=== PATIENT | female | born 1950 | race Asian ===

== ENCOUNTER 2019-11-13 08:02 | Outpatient (CLI) | payer MEDICARE, OTHER, SELFPAY ==
--- NOTE | 2019-11-13 08:15 | XR_ITS ---
WS: [id number] CHEST 2 VIEWS HISTORY: HX OF LATENT TUBERCULOSIS COMPARISON: 09/30/2017 Lungs: Lungs are slightly hyperexpanded. No pulmonary nodules or mass or calcification. Cardiac size: Mildly enlarged cardiac silhouette. Mediastinum/Aorta: Mild atherosclerosis aorta. Bones: Mild straightening of the normal thoracic kyphosis. XR/XR chest 2V* [id number] IMPRESSION: Mild cardiomegaly. No pulmonary nodule or mass.
== END 2019-11-13 08:03 | disposition home or self-care (01) ==
PROVIDERS: Family Provider Family Medicine; PCP Family Medicine; Visit Provider Family Medicine
DX: Z86.11 Personal history of tuberculosis (principal); I51.7 Cardiomegaly
CPT/HCPCS: 71046

== ENCOUNTER 2020-07-10 07:25 | Emergency (ER) | payer OTHER, MEDICARE, SELFPAY ==
[2020-07-10 07:30] VITALS: BP 201/94; PULSE 76; RESP 20; TEMP 36.3; O2SAT 97; BMI 33.0
--- NOTE | 2020-07-10 07:41 | W.ED.HA ---
HPI - Headache General: Chief Complaint: Headache Stated Complaint: HEADACHE Time Seen by Provider: 07/10/20 07:41 Source: patient Mode of arrival: ambulatory Limitations: no limitations History of Present Illness: HPI Narrative: 70-year-old female comes in today with headache for 2 weeks. Patient also reports coughing and nasal drainage with tinge of dark blood in it. Patient has a history of asthma and hypertension. Patient appears well. Patient appears in mild to moderate pain. MD elicited complaint: headache Review of Systems General: Reports: 10 or more systems reviewed and unremarkable except in HPI and below Resp: Reports: wheezing Neuro: Reports: headache(s) PFSH ED PFSH: Family History Father , from [place] age 45 Myocardial infarction Mother Cancer Other Diabetes Hypertension Social History Smoking and tobacco status: never smoked Physical Exam Const: COMMON NORMALS: no acute distress and patient oriented x3 GENERAL APPEARANCE: cooperative HENMT: COMMON NORMALS: normocephalic and TM's normal bilaterally HEAD & SCALP: normal to inspection and normocephalic NOSE: Abnormal mucous membranes and turbinates present erythematous and Nasal discharge present TYMPANIC MEMBRANE: TM's normal bilaterally MOUTH: Normal oral and palatal mucosa present THROAT: posterior oropharynx normal Eye: GENERAL EYE: appearance normal, both eyes and all related structures Neck/C-Spine: COMMON NORMALS: full ROM Lymph: LYMPHATIC: no lymphadenopathy noted Chest: COMMONS NORMALS: normal inspection of the chest Resp: COMMON NORMALS: normal respiratory effort EFFORT & INSPECTION: Yes able to speak in complete sentences AUSCULTATION: wheezes Cardio: COMMON NORMALS: regular rate and regular rhythm RATE: regular rate RHYTHM: regular rhythm GI: COMMON NORMALS: non-tender : COMMON NORMALS: Yes no CVA tenderness BLADDER/KIDNEY EXAM: Yes no CVA tenderness Back/Pelvis: COMMON NORMALS: no CVA tenderness and thoracic and lumbar spine normal to inspection Extremity: COMMON NORMALS: normal to inspection Neuro: COMMON NORMALS: patient oriented x3, moves all extremities, no focal motor deficits and no sensory deficits noted Psych: COMMON NORMALS: mental status grossly normal and cooperative Skin: COMMON NORMALS: no rashes or lesions noted GENERAL SKIN EXAM: no rashes or lesions noted Course Vital Signs: Vital signs: Vital Signs Temperature 97.3 F L 07/10/20 07:30 Pulse Rate 79 07/10/20 08:29 Respiratory Rate 17 07/10/20 08:28 Blood Pressure 201/94 07/10/20 07:30 Pulse Oximetry 97 07/10/20 08:28 MDM - Headache Lab Data: Labs: Lab Results 07/10/20 07/10/20 Range/Units 08:14 08:14 WBC 10.6 H (4.0-10.0) 10^3/ uL RBC 4.75 (4.1-5.3) 10^6/u L Hgb 14.1 (11.5-15.3) g/dL Hct 43.2 (37.0-47.0) % MCV 90.9 (81-99) fL MCH 29.7 (28.0-34.0) pg MCHC 32.6 (30.0-36.0) g/dL RDW 12.1 (12.1-15.1) % Plt Count 171 (130-400) 10^3/c mm MPV 10.8 H (7.4-10.4) fL Neut % (Auto) 76.7 % Lymph % (Auto) 13.2 % [place] % (Auto) 6.7 % Eos % (Auto) 2.4 % Baso % (Auto) 0.8 % Neut # (Auto) 8.16 H (1.8-7.7) 10^3/u L Lymph # (Auto) 1.4 (0.8-4.8) 10^3/u L [place] # (Auto) 0.7 (0.2-0.9) 10^3/u L Eos # (Auto) 0.3 (0.0-0.8) 10^3/u L Baso # (Auto) 0.1 (0.0-0.1) 10^3/u L Nucleated RBC % (a uto) 0 % Nucleated RBCs # 0.0 /100WBC Sodium 134 L (136-145) mmol/L Potassium 4.1 (3.5-5.1) mmol/L Chloride 97 L (98-107) mmol/L Carbon Dioxide 25 (22-29) mmol/L Anion Gap 16.1 (5-19) BUN 14 (8-23) mg/dL Creatinine 0.6 (0.5-0.9) mg/dL GFR Calculation 99.1 (90-130) mL/min Glucose 284 H (65-115) mg/dL Calculated Osmolal ity 289 (285-295) mOsm/k g Calcium 9.6 (8.5-10.5) mg/dL C-Reactive Protein 5.1 H (0.0-4.9) mg/L Discharge Plan Discharge Clinical Impression: Sinusitis Qualifiers: Sinusitis location: ethmoidal Chronicity: acute Recurrence: not specified as recurrent Qualified Code(s): J01.20 - Acute ethmoidal sinusitis, unspecified Asthma exacerbation Qualifiers: Asthma severity: moderate Asthma persistence: persistent Qualified Code(s): J45.41 - Moderate persistent asthma with (acute) exacerbation Condition: Stable Prescriptions: New prednisone 20 mg tablet 20 mg PO BID 5 Days Qty: 10 RF: 0 amoxicillin-pot clavulanate [Augmentin] 875-125 mg tablet 1 tab PO BID Qty: 20 RF: 0 fluticasone propionate [Flonase Allergy Relief] 50 mcg/actuation spray,suspension 1 spray intranasal BID Qty: 9.9 RF: 0 No Action carvedilol [Coreg] 25 mg tablet 25 mg PO BID RF: 0 amlodipine [Norvasc] 10 mg tablet 10 mg PO DAILY RF: 0 glimepiride [Amaryl] 2 mg tablet 2 mg PO DAILY RF: 0 fluticasone propion-salmeterol [Advair Diskus] 250-50 mcg/dose blister with device 1 inh INHALATION BID RF: 0 Discharge Orders: Discharge ED (Routine); Ordered 07/10/20 Ordered By: Oni Yañez Referrals: Thony Chung MD [Primary Care Provider] - Discharge Diet: Usual diet Discharge Activity: Increase activity as tolerated Patient Instructions: Sinusitis (ED) Activity Restrictions/Additional Instructions: Drink plenty of fluids. Take antibiotics as directed 1 tablet twice a day for 10 days. Use fluticasone nasal spray 1 spray each nostril twice a day to help with swelling and discomfort. Use prednisone 20 mg twice a day for the next 5 days for asthma flare. Continue with routine medications as prescribed. Follow-up with primary care for further treatment and evaluation. If you check your blood sugar regularly you will notice that it will elevate for the next few days due to the steroids that you are taking. Return to the emergency department for new concerns or worsening symptoms. 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
--- NOTE | 2020-07-10 07:48 | CTR_ITS ---
PROCEDURE INFORMATION: Exam: CT Head Without Contrast Exam date and time: 07/10/2020 7:52 AM Age: 70 years old Clinical indication: Pain; Headache; Additional info: New onset headache TECHNIQUE: Imaging protocol: Computed tomography of the head without contrast. Radiation optimization: All CT scans at this facility use at least one of these dose optimization techniques: automated exposure control; mA and/or kV adjustment per patient size (includes targeted exams where dose is matched to clinical indication); or iterative reconstruction. COMPARISON: CT head wo con* [id number] 09/30/2017 9:42 AM RADIATION DOSE METRICS: Total DLP (mGy-cm): 749.82 FINDINGS: Brain: No intracranial hemorrhage, edema or other acute abnormalities are seen in the brain. There is no mass effect or midline shift. Cerebral ventricles: No ventriculomegaly. Bones/joints: Unremarkable. No acute fracture. Paranasal sinuses: There is prominent mucosal thickening in the right ethmoid and sphenoid sinuses. There is complete opacification of the posterior right ethmoid air cells and of the right side of the sphenoid sinus. This has developed since a previous scan from 09/30/2017 . Mastoid air cells: Visualized mastoid air cells are well aerated. Soft tissues: Unremarkable. CT/CT head wo con* [id number] IMPRESSION: 1. No acute abnormalities are seen in the brain. 2. Paranasal sinusitis with opacification of the right ethmoid and sphenoid sinuses. Radiation Dose CTDIVOL = (mGy): DLP = 749.82 (mGy-cm)
[2020-07-10] MEDS: dexamethasone 4 mg/mL INJ 8 MG IVP (08:21)
[2020-07-10] MEDS: metoclopramide 5 mg/mL SDV 2 mL 10 MG IVP (08:21)
[2020-07-10] MEDS: ipratropium-albuterol 3 mL Neb INHALATION (08:26)
[2020-07-10 08:28] VITALS: PULSE 75; RESP 17; O2SAT 97
[2020-07-10 08:29] VITALS: PULSE 79
[2020-07-10 08:32] LABS: Basophils # 0.1 10^3/uL (0.0-0.1); Basophils % 0.8 %; Eosinophils # 0.3 10^3/uL (0.0-0.8); Eosinophils % 2.4 %; Hematocrit 43.2 % (37.0-47.0); Hemoglobin 14.1 g/dL (11.5-15.3); Lymphocytes # 1.4 10^3/uL (0.8-4.8); Lymphocytes % 13.2 %; Mean Corpuscular HGB Conc 32.6 g/dL (30.0-36.0); Mean Corpuscular Hemoglobin 29.7 pg (28.0-34.0); Mean Corpuscular Volume 90.9 fL (81-99); Mean Platelet Volume 10.8 fL (7.4-10.4); Monocytes # 0.7 10^3/uL (0.2-0.9); Monocytes % 6.7 %; Neutrophils # 8.16 10^3/uL (1.8-7.7); Neutrophils % 76.7 %; Nucleated Red Blood Cells % 0 %; Platelet Count 171 10^3/cmm (130-400); Red Blood Count 4.75 10^6/uL (4.1-5.3); Red Cell Distribution Width 12.1 % (12.1-15.1); White Blood Count 10.6 10^3/uL (4.0-10.0)
[2020-07-10 08:44] LABS: Anion Gap 16.1 (5-19); Blood Urea Nitrogen 14 mg/dL (8-23); C Reactive Protein 5.1 mg/L (0.0-4.9); Calcium 9.6 mg/dL (8.5-10.5); Carbon Dioxide 25 mmol/L (22-29); Chloride 97 mmol/L (98-107); Glomerular Filtration Rate 99.1 mL/min (90-130); Glucose 284 mg/dL (65-115); Osmolality Calculated 289 mOsm/kg (285-295); Potassium 4.1 mmol/L (3.5-5.1); Sodium 134 mmol/L (136-145)
[2020-07-10 09:08] VITALS: BP 132/85; PULSE 70; RESP 16; O2SAT 97
== END 2020-07-10 09:10 | disposition home or self-care (01) ==
PROVIDERS: Emergency Provider Nurse Practitioner Family; PCP Family Medicine
DX: J01.20 Acute ethmoidal sinusitis, unspecified (principal); J45.41 Moderate persistent asthma with (acute) exacerbation
CPT/HCPCS: 12345; 70450; 80048; 85025; 86140; 94640; 96374; 96375; 99283; J1100; J2765

== ENCOUNTER 2020-07-13 05:39 | Inpatient (IN) | payer OTHER, MEDICARE, SELFPAY ==
[2020-07-13] VITALS (17 sets, daily range): BP systolic 133–190; BP diastolic 70–108; PULSE 62–87; RESP 18–24; TEMP 36.8–38.4; O2SAT 95–99; BMI 32.1
--- NOTE | 2020-07-13 05:51 | CTR_ITS ---
PROCEDURE INFORMATION: Exam: CT Head Without Contrast Exam date and time: 07/13/2020 6:00 AM Age: 70 years old Clinical indication: Pain; Patient HX: Persistent headache x several days with fever. ; Additional info: NASH TECHNIQUE: Imaging protocol: Computed tomography of the head without contrast. Radiation optimization: All CT scans at this facility use at least one of these dose optimization techniques: automated exposure control; mA and/or kV adjustment per patient size (includes targeted exams where dose is matched to clinical indication); or iterative reconstruction. COMPARISON: CT head wo con* [id number] 07/10/2020 7:55 AM RADIATION DOSE METRICS: Total DLP (mGy-cm): 186 FINDINGS: Brain: There is no acute intracranial hemorrhage or mass effect. Mild diffuse volume loss is within the range of normal for patient age. There are small vessel ischemic changes within the periventricular and subcortical white matter, but the normal aburto/white matter delineation is maintained. Cerebral ventricles: No ventriculomegaly. Bones/joints: Unremarkable. No acute fracture. Paranasal sinuses: There is opacification of right ethmoid air cells and right sphenoid sinus. There is mild ethmoid and left maxillary sinus mucosal thickening. Mastoid air cells: Visualized mastoid air cells are well aerated. Soft tissues: Unremarkable. CT/CT head wo con* [id number] IMPRESSION: No acute intracranial hemorrhage or edema. Sinus mucosal disease. Radiation Dose CTDIVOL = (mGy): DLP = 186 (mGy-cm)
--- NOTE | 2020-07-13 06:22 | ED_ITS ---
HPI - Headache General: Chief Complaint: Headache Stated Complaint: severe headache Time Seen by Provider: 07/13/20 06:08 History of Present Illness: HPI Narrative: 70-year-old female in with complaints of persistent headache. The patient describes a throbbing frontal type headache. She has had this for several days now she was actually seen here 4 days earlier and had workup that included a CT scan that was reportedly negative she was treated for sinusitis and released. Unfortunately the headache persists. She rates it as moderate to severe in intensity with light and movement exacerbating her symptoms. The patient has had some nausea and vomiting. She has been taking her medications include doxycycline, prednisone and Flonase as directed. She reports her blood pressures been a little bit on the higher side. She notes no other palliative or provocative factors. She has not been around anybody sick or denied any fever but when she checked in her temperature did have slight elevation. MD elicited complaint: headache Onset (ago): day(s) Onset description: gradually Location: frontal and temporal Quality & Timing: throbbing Associated symptoms: Reports nausea and vomiting; Deny chest pain or rash Review of Systems Eyes: Reports: photophobia; Denies: eye discharge or yellow eyes ENMT: Denies: throat pain Card: Denies: chest pain Resp: Denies: dyspnea GI: Reports: nausea and vomiting; Denies: abdominal pain, hematemesis, coffee ground emesis or dysphagia : Denies: flank pain Musc: Denies: neck pain or muscle weakness Skin/Breast: Denies: rash Neuro: Reports: headache(s); Denies: numbness in extremities, weakness in extremities, dizziness, behavioral changes, Slurred speech present, difficulty communicating thoughts, seizure-like activity or involuntary movements Psych: Reports: anxiety PFSH ED PFSH: Medical History (Updated 07/13/20 @ 12:09 by Ilan Catalan MD) Asthma Diabetes mellitus Hypertension DOTTIE (obstructive sleep apnea) Osteoarthritis Surgical History (Updated 07/13/20 @ 12:03 by Ilan Catalan MD) S/P cataract extraction S/P hysterectomy S/P knee surgery S/P oophorectomy Family History Father , from [place] age 45 Myocardial infarction Mother Cancer Other Diabetes Hypertension Social History (Updated 07/13/20 @ 12:04 by Ilan Catalan MD) Smoking and tobacco status: never smoked Alcohol intake: never Physical Exam Const: COMMON NORMALS: no acute distress, patient oriented x3, healthy appearing and alert EXAM LIMITATIONS: no altered mental status GENERAL APPEARANCE: cooperative; not lethargic, not ill appearing and not frail appearing ORIENTATION/CONSCIOUSNESS: not lethargic HENMT: COMMON NORMALS: normocephalic, Normal nasal mucous membranes and turbinates present and moist oral mucous membranes HEAD & SCALP: normocephalic; no contusion FACE & SINUS: normal facial exam NOSE: Normal nasal mucous membranes and turbinates present Neck/C-Spine: COMMON NORMALS: full ROM, no lymphadenopathy, no meningeal signs and no JVD GENERAL: Yes normal visual inspection Chest: COMMONS NORMALS: normal inspection of the chest CHEST: Yes Symmetrical chest wall rise Resp: COMMON NORMALS: normal respiratory effort, No use of accessory muscles and clear to auscultation bilaterally AUSCULTATION: clear to auscultation bilaterally Cardio: COMMON NORMALS: no JVD, regular rate and regular rhythm RATE: regular rate RHYTHM: regular rhythm Back/Pelvis: THORACIC SPINE/UPPER BACK: Yes normal to inspection LUMBAR SPINE/LOWER BACK: Yes normal to inspection Extremity: GENERAL: Yes normal exam except as noted Neuro: COMMON NORMALS: patient oriented x3 SENSORIUM/ORIENTATION: Yes alert and No lethargic MENINGEAL SIGNS: Yes no meningeal signs CRANIAL NERVES: Yes CN normal except as noted COORDINATION/BALANCE: [id number] test normal SPEECH: speech normal GAIT: Yes Unable to assess gait SENSORY EXAM: Yes extremities COORDINATION: [id number] test normal Skin: COMMON NORMALS: no rashes or lesions noted GENERAL SKIN EXAM: no rashes or lesions noted Procedures Lumbar Puncture Time Out Performed: Yes Patient Position: upright Skin Prep: Povidone-Iodine 1% Local Anesthetic: lidocaine 1% Spinal Needle Gauge: 20G Interspace Used: L4-L5 Fluid Initially Obtained: clear Complications: none Course Reevaluation(s): Time: 07:53 Reevaluation #2: Patient reports NASH is somewhat improved. Will give magnesium and toradol. Work up so far unrevealing with negative CT head. ? steroid induced leukocytosis. COVID test is pending. Time: 10:13 Reevaluation #3: Feeling better. CSF / Sed rate results pending Vital Signs: Vital signs: Vital Signs Temperature 100.4 F H 07/13/20 07:10 Pulse Rate 73 07/13/20 12:00 Respiratory Rate 23 H 07/13/20 12:00 Blood Pressure 180/105 07/13/20 12:00 Pulse Oximetry 98 07/13/20 12:00 MDM - Headache MDM Narrative: Medical decision making narrative: 70-year-old female in with persistent headache. The patient still has a broad differential diagnosis and medical and repeat a CT scan of her head and routine labs will give a standard headache cocktail do serial reexaminations. At this point she doesn't appear to be toxic or significantly ill. I don't think at this point a lumbar puncture would be indicated we may consider testing her for garcia virus infection and influenza. Patient work up shows some concerning lab findings. Empiric antibiotics and admission with coverage for TA will be implemented. Discussed case with Dr. Catalan. Differential Diagnosis: Differential diagnosis headache: Likely migraine, tension headache, subarachnoid hemorrhage, headache and sinusitis Lab Data: Labs: Lab Results 07/13/20 07/13/20 07/13/20 Range/Units 06:34 06:34 06:34 WBC 17.8 H (4.0-10.0) 10^3/ uL RBC 5.00 (4.1-5.3) 10^6/u L Hgb 14.7 (11.5-15.3) g/dL Hct 44.5 (37.0-47.0) % MCV 89.0 (81-99) fL MCH 29.4 (28.0-34.0) pg MCHC 33.0 (30.0-36.0) g/dL RDW 12.0 L (12.1-15.1) % Plt Count 165 (130-400) 10^3/c mm MPV 10.6 H (7.4-10.4) fL Neut % (Auto) 87.7 % Lymph % (Auto) 4.3 % [place] % (Auto) 6.7 % Eos % (Auto) 0.0 % Baso % (Auto) 0.2 % Neut # (Auto) 15.61 H (1.8-7.7) 10^3/u L Lymph # (Auto) 0.8 (0.8-4.8) 10^3/u L [place] # (Auto) 1.2 H (0.2-0.9) 10^3/u L Eos # (Auto) 0.0 (0.0-0.8) 10^3/u L Baso # (Auto) 0.0 (0.0-0.1) 10^3/u L Nucleated RBC % (a uto) 0 % Nucleated RBCs # 0.0 /100WBC ESR > 120 H (0-15) mm/hr Sodium 128 L (136-145) mmol/L Potassium 4.1 (3.5-5.1) mmol/L Chloride 92 L (98-107) mmol/L Carbon Dioxide 26 (22-29) mmol/L Anion Gap 14.1 (5-19) BUN 21 (8-23) mg/dL Creatinine 0.5 (0.5-0.9) mg/dL GFR Calculation 122.3 (90-130) mL/min Glucose 321 H (65-115) mg/dL Calculated Osmolal ity 281 L (285-295) mOsm/k g Calcium 8.9 (8.5-10.5) mg/dL Total Bilirubin 1.1 (0.15-1.2) mg/dL AST 12 (0-32) U/L ALT 16 (0-33) U/L Alkaline Phosphata se 104 (35-105) IU/L C-Reactive Protein 84.0 H (0.0-4.9) mg/L Total Protein 7.7 (6.6-8.7) g/dL Albumin 4.0 (3.5-5.2) g/dL Globulin 3.7 (1.3-4.6) g/dL Urine Color (Yellow) Urine Appearance (CLEAR) Urine pH (5-7) Ur Specific Gravit y (1.005-1.030) Urine Protein (Negative) Urine Glucose (UA) (Normal) Urine Ketones (Negative) Urine Blood (Negative) Urine Nitrate (Negative) Urine Bilirubin (Negative) Urine Urobilinogen (Negative) mg/dL Ur Leukocyte Radha ase (Negative) Urine RBC (0-2) /hpf Urine WBC (0-5) /hpf Ur Squamous Epith Cells (0-5) /hpf Amorphous Sediment Urine Bacteria (NONE) /hpf Urine Trichomonas /hpf CSF Appearance (CLEAR) CSF Color (COLORLESS) CSF WBC (0-5) /uL CSF RBC (0-0) 10^3/uL CSF Mononuclear # Auto (50-90) 10^3/uL CSF Mononuclear WB Cs % (50-90) % CSF Polynuclear WB Cs # (0-10) 10^3/uL CSF Polynuclear WB Cs % (0-10) % CSF Glucose (40-70) mg/dL CSF Total Protein (15-45) mg/dL SARS-CoV-2 Ag (Rap id) (Negative) 07/13/20 07/13/20 07/13/20 Range/Units 07:25 08:30 10:00 WBC (4.0-10.0) 10^3/ uL RBC (4.1-5.3) 10^6/u L Hgb (11.5-15.3) g/dL Hct (37.0-47.0) % MCV (81-99) fL MCH (28.0-34.0) pg MCHC (30.0-36.0) g/dL RDW (12.1-15.1) % Plt Count (130-400) 10^3/c mm MPV (7.4-10.4) fL Neut % (Auto) % Lymph % (Auto) % [place] % (Auto) % Eos % (Auto) % Baso % (Auto) % Neut # (Auto) (1.8-7.7) 10^3/u L Lymph # (Auto) (0.8-4.8) 10^3/u L [place] # (Auto) (0.2-0.9) 10^3/u L Eos # (Auto) (0.0-0.8) 10^3/u L Baso # (Auto) (0.0-0.1) 10^3/u L Nucleated RBC % (a uto) % Nucleated RBCs # /100WBC ESR (0-15) mm/hr Sodium (136-145) mmol/L Potassium (3.5-5.1) mmol/L Chloride (98-107) mmol/L Carbon Dioxide (22-29) mmol/L Anion Gap (5-19) BUN (8-23) mg/dL Creatinine (0.5-0.9) mg/dL GFR Calculation (90-130) mL/min Glucose (65-115) mg/dL Calculated Osmolal ity (285-295) mOsm/k g Calcium (8.5-10.5) mg/dL Total Bilirubin (0.15-1.2) mg/dL AST (0-32) U/L ALT (0-33) U/L Alkaline Phosphata se (35-105) IU/L C-Reactive Protein (0.0-4.9) mg/L Total Protein (6.6-8.7) g/dL Albumin (3.5-5.2) g/dL Globulin (1.3-4.6) g/dL Urine Color Yellow (Yellow) Urine Appearance Clear (CLEAR) Urine pH 6 (5-7) Ur Specific Gravit y 1.010 (1.005-1.030) Urine Protein 2+ H (Negative) Urine Glucose (UA) 4+ H (Normal) Urine Ketones 1+ H (Negative) Urine Blood 2+ H (Negative) Urine Nitrate Negative (Negative) Urine Bilirubin Neg (Negative) Urine Urobilinogen 1 H (Negative) mg/dL Ur Leukocyte Radha ase Negative (Negative) Urine RBC 0-4 H (0-2) /hpf Urine WBC None (0-5) /hpf Ur Squamous Epith Cells Rare (0-5) /hpf Amorphous Sediment Not Reportable Urine Bacteria Trace (NONE) /hpf Urine Trichomonas Trace H /hpf CSF Appearance Clear (CLEAR) CSF Color Colorless (COLORLESS) CSF WBC 3 (0-5) /uL CSF RBC 0 (0-0) 10^3/uL CSF Mononuclear # Auto 0.003 L (50-90) 10^3/uL CSF Mononuclear WB Cs % 100 H (50-90) % CSF Polynuclear WB Cs # 0.000 (0-10) 10^3/uL CSF Polynuclear WB Cs % 0 (0-10) % CSF Glucose 133 H (40-70) mg/dL CSF Total Protein 43 (15-45) mg/dL SARS-CoV-2 Ag (Rap id) Negative (Negative) Discharge Plan Discharge Patient Disposition: Admitted As Inpatient Clinical Impression: Headache Qualifiers: Headache type: unspecified Condition: Stable Coding Level of 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
[2020-07-13 06:47] LABS: Basophils % 0.2 %; Hematocrit 44.5 % (37.0-47.0); Hemoglobin 14.7 g/dL (11.5-15.3); Lymphocytes # 0.8 10^3/uL (0.8-4.8); Lymphocytes % 4.3 %; Mean Corpuscular Hemoglobin 29.4 pg (28.0-34.0); Mean Platelet Volume 10.6 fL (7.4-10.4); Monocytes # 1.2 10^3/uL (0.2-0.9); Monocytes % 6.7 %; Neutrophils # 15.61 10^3/uL (1.8-7.7); Neutrophils % 87.7 %; Nucleated Red Blood Cells % 0 %; Platelet Count 165 10^3/cmm (130-400); White Blood Count 17.8 10^3/uL (4.0-10.0)
[2020-07-13] MEDS: lactated ringers 1,000 ML 999 ML IV (06:48)
[2020-07-13] MEDS: metoclopramide 5 mg/mL SDV 2 mL 10 MG IVP (06:48)
[2020-07-13] MEDS: diphenhydrAMINE 50 mg/mL SDV 1mL IVP (06:48)
--- NOTE | 2020-07-13 06:58 | XR_ITS ---
WS: [id number] PORTABLE CHEST HISTORY: Fever, Headache, Cough COMPARISON: 11/13/2019 Mild interstitial thickening throughout both lungs. No areas of consolidation. No pleural effusion or pneumothorax. Cardiac size: Normal. Mediastinum/Aorta: Mild atherosclerosis aorta. No osseous abnormality seen. XR/XR chest 1V portable [id number] IMPRESSION: Mild interstitial edema.
[2020-07-13 07:25] LABS: Alanine Aminotransferase 16 U/L (0-33); Alkaline Phosphatase 104 IU/L (35-105); Anion Gap 14.1 (5-19); Aspartate Amino Transferase 12 U/L (0-32); Blood Urea Nitrogen 21 mg/dL (8-23); Calcium 8.9 mg/dL (8.5-10.5); Carbon Dioxide 26 mmol/L (22-29); Chloride 92 mmol/L (98-107); Globulin 3.7 g/dL (1.3-4.6); Glomerular Filtration Rate 122.3 mL/min (90-130); Glucose 321 mg/dL (65-115); Osmolality Calculated 281 mOsm/kg (285-295); Potassium 4.1 mmol/L (3.5-5.1); Sodium 128 mmol/L (136-145); Total Bilirubin 1.1 mg/dL (0.15-1.2); Total Protein 7.7 g/dL (6.6-8.7)
[2020-07-13 08:01] LABS: SARS Covid-2 Antigen Negative (Negative)
[2020-07-13] MEDS: ketorolac 30 mg/mL INJ IVP (08:18)
[2020-07-13] MEDS: magnesium sulfate premix 2 GM/50 ML PIGGYBACK IV (08:18)
[2020-07-13 09:32] LABS: Add Urine Culture? No; Bacteria Urine TRACE /hpf; Bilirubin Urine Neg (Negative); Blood Urine 2+ (Negative); Glucose Urine UA 4+ (Normal); Ketones Urine 1+ (Negative); Leukocyte Esterase Urine Negative (Negative); Nitrate Urine Negative (Negative); Protein Urine 2+ (Negative); RBC Urine 0-4 /hpf (0-2); Squamous Epithelial Cell Urine RARE /hpf (0-5); Trichomonas Urine TRACE /hpf; Urine Appearance Clear (CLEAR); Urine Color Yellow (Yellow); Urobilinogen Urine 1 mg/dL (Negative); pH Urine 6 (5-7)
[2020-07-13] MEDS: midazolam 1 mg/mL INJ 2 mL 2 MG IVP (09:41)
[2020-07-13 10:46] LABS: CSF Mononuclear # 0.003 10^3/uL (50-90); Mononuclear WBC CSF % 100 % (50-90); Polynuclear WBC CSF % 0 % (0-10); Red Blood Cell CSF 0 10^3/uL (0-0); White Blood Cell CSF 3 /uL (0-5)
[2020-07-13 10:46] LABS: Erythrocyte Sedimentation Rate > 120 mm/hr (0-15)
[2020-07-13 11:05] LABS: Appearance CSF CLEAR (CLEAR); Color CSF COLORLESS (COLORLESS)
[2020-07-13] MEDS: vancomycin 1,000 MG in sodium chloride 0.9% 250 ML 250 MG IV (11:47)
[2020-07-13] MEDS: ampicillin 2,000 MG in sodium chloride 0.9% (plus) 50 ML 100 MG IV (11:48)
[2020-07-13] MEDS: cefTRIAXone 2,000 MG in sodium chloride 0.9% (plus) 50 ML 100 MG IV (11:48)
[2020-07-13 11:49] LABS: Glucose CSF 133 mg/dL (40-70); Total Protein CSF 43 mg/dL (15-45)
[2020-07-13] MEDS: hydrocortisone 100 mg/2 mL SDV 50 MG IVP (11:49)
--- NOTE | 2020-07-13 11:57 | PM.HP ---
Providers/Chief Complaint Primary Care Provider: Thony Chung MD Chief Complaint: severe headache History of Present Illness Marshall Bradford is a 70 year old female who presents to the emergency department with history of headache for the last 4 days. This is really in the back of her neck and to the crown of her head. She denies any headache like this previously. She has had some chills. Some low-grade temperatures at home. No significant rhinorrhea. Rare cough. No shortness of breath. Denies any exposure to Covid, personal history of Covid. Family members are not ill. No recent travel. No pets at home. No tick exposure. No sore throat currently. With treatment by emergency department neck pain is improved. She was seen in the emergency department July 10 for headache. She received Augmentin and prednisone but it appears that the Augmentin was changed to doxycycline. Has had some vomiting. No diarrhea. Review of Systems General: Reports: 10 or more systems reviewed and unremarkable except in HPI and below Const: Reports: fever(s) and chills; Denies: body aches Eyes: Denies: change in vision ENMT: Denies: throat pain Card: Denies: chest pain Resp: Denies: dyspnea GI: Reports: nausea and vomiting; Denies: abdominal pain : Denies: flank pain Musc: Denies: neck pain Skin/Breast: Denies: rash Neuro: Reports: headache(s) Psych: Denies: anxiety Endo: Denies: polyuria Car/Lymph: Denies: easy bruising All/Imm: Denies: urticaria Medications/Allergies Home Medications Medication Instructions Recorded Confirmed Last Taken Type carvedilol 25 mg tablet 25 mg PO BID 11/30/19 07/13/20 07/13/20 History fluticasone 250 mcg-salmeterol 50 1 inh INHALATION BID 11/30/19 07/13/20 07/13/20 History mcg/dose blistr powdr for inhalation glimepiride 2 mg tablet 3 mg PO BID 11/30/19 07/13/20 07/13/20 History doxycycline hyclate 100 mg PO BID 10 Days #20 cap 07/10/20 07/13/20 07/13/20 Rx fluticasone propionate [Flonase 1 spray INTRANASAL BID #9.9 ml 07/10/20 07/13/20 Unknown Rx Allergy Relief] prednisone 20 mg PO BID 5 Days #10 tab 07/10/20 07/13/20 07/13/20 Rx hydralazine 10 mg PO BID 07/13/20 07/13/20 07/13/20 History Allergies Allergy/AdvReac Type Severity Reaction Status Date / Time Iodinated Contrast Media Allergy Unknown Unknown Verified 11/30/19 15:24 apple Allergy ALGY-Swell Verified 07/10/20 07:38 Lip/Tongue/Throat banana Allergy ALGY-Swell Verified 07/10/20 07:38 Lip/Tongue/Throat pineapple Allergy ALGY-Swell Verified 07/10/20 07:38 Lip/Tongue/Throat strawberry Allergy ALGY-Swell Verified 07/10/20 07:38 Lip/Tongue/Throat PFSH Acute PFSH: Medical History (Updated 07/13/20 @ 14:24 by Ilan Catalan MD) Asthma Diabetes mellitus Hypertension DOTTIE (obstructive sleep apnea) Osteoarthritis Surgical History (Updated 07/13/20 @ 12:03 by Ilan Catalan MD) S/P cataract extraction S/P hysterectomy S/P knee surgery S/P oophorectomy Family History Father , from [place] 45 Myocardial infarction Mother Cancer Other Diabetes Hypertension Social History (Updated 07/13/20 @ 12:04 by Ilan Catalan MD) Smoking and tobacco status: never smoked Alcohol intake: never Vitals/I&O/Wt Last Vital Signs Temp 100.4 F H 07/13/20 07:10 Pulse 70 07/13/20 10:32 Resp 22 H 07/13/20 10:32 BP 170/81 07/13/20 10:32 Pulse Ox 97 07/13/20 10:32 07/12/20 07/13/20 07/13/20 22:59 06:59 14:59 Intake Total 1050 / 1050 Balance 1050 / 1050 Weight last 48 hrs Weight 77.111 kg Physical Exam Narrative: EXAM NARRATIVE: General exam there is a female, conversant and in no apparent distress currently. HEENT: Pupils equally round. Sclera slightly injected. Oropharynx clear. No erythema or exudate. No temporal artery tenderness to palpation or bruit heard. Neck is supple no lymphadenopathy or thyromegaly. Slight tenderness posteriorly. Regular rate and rhythm without murmur, no S3 or S4 Cardiovascular regular rate and rhythm without murmur, no S3 or S4 Lungs clear no wheezing or crackles Abdomen is soft with positive bowel sounds. No obvious organomegaly was deferred Extremities no cyanosis clubbing or edema, cap refill is brisk Skin no rash Neuro no focal deficits. Data : 07/13/20 06:34 07/13/20 06:34 Other data: Sedimentation rate greater than 120 LFTs normal 2+ urine protein. 0-4 reds. No whites. CSF 3 whites, 0 reds, 100% mononuclear Rapid Covid negative Head CT. Some evidence of sinus disease. Otherwise negative. Chest x-ray I do not notice an infiltrate. Over read demonstrates mild interstitial edema Influenza a and B are negative A&P Assessment and plan (1) Headache: At this point she has headache, fever, posterior neck pain with concern for meningismus, vomiting on arrival. She has been treated with perhaps a few doses of Augmentin and definitely doxycycline as well as prednisone and a previous ER visit on July 10. Although cell counts and CSF are significantly low she does have leukocytosis, left shift. Must at least entertain the possibility of partially treated meningitis, or encephalitis. Continue vancomycin and Rocephin started in the emergency department CSF culture Add acyclovir HSV PCR Viral antigen testing Pain control If headache does not improve could consider MRI/MRV although she appears comfortable currently. Status: Acute Qualifiers: Headache type: unspecified (2) Fever: See above Add blood culture Status: Acute (3) Leukocytosis: Presumably secondary to infection, viral versus bacterial. Cannot rule out steroid effect Status: Acute (4) Diabetes mellitus: Sliding scale insulin Status: Inactive (5) Hypertension: Continue home medications Status: Inactive Additional A&P Information History of asthma, no evidence of exacerbation full code Heparin for DVT prophylaxis starting tonight Attestations Medical Necessity Statement*: Will need greater than 2 midnight stay for evaluation of fever, headache Time Spent in Patient Care: Greater than 35 minutes Coding Level of Care Code Acute Social Work Instructor for Chg Fwd Diagnoses Headache R51.9 Headache type: unspecified Fever R50.9 Leukocytosis D72.829 Diabetes mellitus E11.9 Hypertension I10
[2020-07-13 12:29] LABS: Procalcitonin 0.27 ng/mL (0-0.5)
[2020-07-13 12:39] LABS: Influenza A by IFA Negative (Negative); Influenza B by IFA Negative (Negative)
[2020-07-13 13:07] LABS: Thyroid Stimulating Hormone 0.64 uIU/mL (0.27-4.20)
[2020-07-13] MEDS: sodium chloride 0.9% 1,000 ML 75 ML IV (13:10)
--- NOTE | 2020-07-13 16:31 | PC.NURSE ---
assisted with lumbar puncture at this time, 2 lumbar kits used at time of procedure
[2020-07-13 17:09] LABS: Glucose Point of Care 275 mg/dL (70-110)
[2020-07-13] MEDS: carvedilol 25 mg Tablet PO (17:23)
[2020-07-13] MEDS: heparin 5,000 unit/mL INJ 1 mL 5000 UNIT SUBCUT (17:23)
[2020-07-13] MEDS: hyDRALAzine 10 mg Tablet PO (20:44)
[2020-07-13 21:05] LABS: Glucose Point of Care 229 mg/dL (70-110)
[2020-07-13] MEDS: ibuprofen 600 mg Tablet PO (21:56)
[2020-07-14] VITALS (8 sets, daily range): BP systolic 140–180; BP diastolic 69–90; PULSE 59–71; RESP 18–20; TEMP 36.7–36.9; O2SAT 94–99
[2020-07-14] MEDS: vancomycin 1,250 MG/250 ML PIGGYBACK 250 MG IV ×2 (00:24→13:13)
[2020-07-14] MEDS: sodium chloride 0.9% 1,000 ML 75 ML IV ×2 (04:42→19:03)
[2020-07-14 04:47] LABS: Basophils % 0.2 %; Eosinophils % 0.2 %; Hematocrit 38.8 % (37.0-47.0); Hemoglobin 12.8 g/dL (11.5-15.3); Lymphocytes # 1.4 10^3/uL (0.8-4.8); Lymphocytes % 10.3 %; Mean Corpuscular Volume 90.9 fL (81-99); Mean Platelet Volume 10.2 fL (7.4-10.4); Monocytes # 1.4 10^3/uL (0.2-0.9); Monocytes % 10.5 %; Neutrophils # 10.39 10^3/uL (1.8-7.7); Neutrophils % 78.1 %; Nucleated Red Blood Cells % 0 %; Platelet Count 162 10^3/cmm (130-400); Red Blood Count 4.27 10^6/uL (4.1-5.3); Red Cell Distribution Width 12.1 % (12.1-15.1); White Blood Count 13.3 10^3/uL (4.0-10.0)
[2020-07-14 05:15] LABS: Alanine Aminotransferase 11 U/L (0-33); Albumin Level 2.9 g/dL (3.5-5.2); Alkaline Phosphatase 76 IU/L (35-105); Anion Gap 11.2 (5-19); Aspartate Amino Transferase 9 U/L (0-32); Blood Urea Nitrogen 17 mg/dL (8-23); Calcium 8.1 mg/dL (8.5-10.5); Carbon Dioxide 26 mmol/L (22-29); Chloride 102 mmol/L (98-107); Globulin 3.1 g/dL (1.3-4.6); Glomerular Filtration Rate 122.3 mL/min (90-130); Glucose 209 mg/dL (65-115); Magnesium 2.2 mg/dL (1.7-2.3); Osmolality Calculated 290 mOsm/kg (285-295); Potassium 3.2 mmol/L (3.5-5.1); Sodium 136 mmol/L (136-145); Total Bilirubin 0.7 mg/dL (0.15-1.2)
[2020-07-14] MEDS: heparin 5,000 unit/mL INJ 1 mL 5000 UNIT SUBCUT ×2 (06:57→19:03)
[2020-07-14 06:58] LABS: Glucose Point of Care 192 mg/dL (70-110)
[2020-07-14] MEDS: ipratropium-albuterol 3 mL Neb INHALATION ×2 (07:50→20:30)
[2020-07-14] MEDS: hyDRALAzine 10 mg Tablet PO ×2 (08:27→19:03)
[2020-07-14] MEDS: carvedilol 25 mg Tablet PO ×2 (08:27→19:03)
[2020-07-14] MEDS: ibuprofen 600 mg Tablet PO ×2 (08:29→19:02)
[2020-07-14] MEDS: cefTRIAXone 2,000 MG in sodium chloride 0.9% (plus) 50 ML 100 MG IV (10:43)
--- NOTE | 2020-07-14 10:57 | PC.CHAP ---
Pastoral Care Encounter/Spiritual Assessment Type of Contact [X] Declined apron cleaner visit [] Patient/Family/Request visit [] Outpatient visit [] Follow-up visit [] Physician referral [] Code/Alert [] Routine visit [] Staff referral [] Actively dying [] Patient sleeping [] Family support [] [] Out of room [] Palliative care [] [] Receiving care in room [] Pre-surgical visit [] Trauma [] Long length of stay [] ICU visit [] Other: Relational/Emotional Strength [] Patient feels connected with others/family/visitors/staff [] Distress [] Loneliness/isolation [] Abandonment Spirituality of Patient [] Person of Michelle [] Attends Taoism of their Michelle [] Believes in Prayer [] Reads Bible or Adventism materials [] There are Spiritual issues to be addressed Career Transition Specialist Interventions [] Prayer [] Active listening [] Non-anxious presence [] Spiritual/emotional support [] Crisis/trauma care [] Spiritual counseling [] Bereavement support [] Provided bereavement packet [] Provided Bible/devotional materials [] Provided toy/stuffed animal, coloring book to patient or family member [] Provided Communion [] Anointing/[place] [] Salvation [] Completed spiritual assessment [] Other: Impact on Illness or Injury [] Angry [] Fearful [] Anxious [] Often cries [] Exhaustion [] Unable to work [] Unable to attend alevism [] Unable to walk/stand [] Unable to read [] Unable to drive [] Unable to eat/drink [] Unable to sleep [] Unable to be with family [] Patient intubated [] Other: Summary Declined apron cleaner visit Time spent with patient 5 mins
[2020-07-14 12:29] LABS: Glucose Point of Care 223 mg/dL (70-110)
[2020-07-14 18:32] LABS: Glucose Point of Care 168 mg/dL (70-110)
--- NOTE | 2020-07-14 19:31 | PM.PN ---
Subjective Subjective: Interval history: Overnight and this morning had persistent headache again. Posterior. Also in her neck. She denies numbness or weakness. Has had no nausea vomiting or diarrhea. No rash. No vision changes. Does report photophobia. Vitals/I&O/Wt Last Vital Signs Temp 98.2 F 07/14/20 16:00 Pulse 66 07/14/20 16:00 Resp 18 07/14/20 16:00 BP 160/78 07/14/20 16:00 Pulse Ox 99 07/14/20 16:00 07/14/20 07/14/20 07/14/20 06:59 14:59 22:59 Intake Total 1490 / 3120.8 605.4 / 605.4 1000 / 1605.4 Output Total 275 / 775 Balance 1215 / 2345.8 605.4 / 605.4 1000 / 1605.4 Weight last 48 hrs Weight 77.111 kg Physical Exam Const: COMMON NORMALS: no acute distress, patient oriented x3 and alert ORIENTATION/CONSCIOUSNESS: Yes oriented to person, Yes oriented to place and Yes oriented to time OTHER: Appears uncomfortable with malaise. HENMT: COMMON NORMALS: oropharynx normal Neck/C-Spine: COMMON NORMALS: no JVD Resp: COMMON NORMALS: normal respiratory effort and clear to auscultation bilaterally AUSCULTATION: clear to auscultation bilaterally Cardio: COMMON NORMALS: no JVD, regular rhythm, S1 normal heart sound present, S2 normal heart sound present and No murmurs present (Cardio) RHYTHM: regular rhythm HEART SOUNDS: S1 normal heart sound present and S2 normal heart sound present GI: COMMON NORMALS: Normal to inspection, nondistended, normoactive bowel sounds present, Soft to palpation and non-tender PALPATION: Yes Soft to palpation Extremity: COMMON NORMALS: no joint enlargement and no pedal edema Neuro: COMMON NORMALS: patient oriented x3 and moves all extremities SENSORIUM/ORIENTATION: Yes alert, Yes oriented to person, Yes oriented to place and Yes oriented to time COORDINATION/BALANCE: [id number] test normal SPEECH: speech normal GAIT: Yes Unable to assess gait SENSORY EXAM: Yes extremities (normal) and Normal double simultaneous stimulation for sensation; No sensory level loss detected MOTOR EXAM: 5/5 motor strength present throughout COORDINATION: [id number] test normal OTHER: Visual villagomez full to confrontation. Skin: COMMON NORMALS: no rashes or lesions noted GENERAL SKIN EXAM: no rashes or lesions noted Data : 07/14/20 04:39 07/14/20 04:39 Micro: Microbiology 07/13/20 10:00 Gram Stain - Final Cerebrospinal Fluid CSF Culture - Preliminary 07/13/20 14:55 Blood Culture - Preliminary Blood NEGATIVE TO DATE 07/13/20 13:21 Blood Culture - Preliminary Blood NEGATIVE TO DATE 07/13/20 10:00 Bacterial Antigens - Final Cerebrospinal Fluid A&P Assessment and plan (1) Headache: Possible viral meningitis, although LP results rather normal, but with 3 mononuclear cells noted. Gram stain unremarkable. Culture pending. Blood culture negative so far. Still headache overnight, this morning. In the afternoon appears to be better. With persistent headache, sinusitis, ordered MRI, MRA, MRV brain as discussed with her. She is agreeable for additional evaluation. Requested also carotid Doppler, if possible with vertebral Dopplers due to headache being posterior. She denies any trauma to her neck any falls recently it may lead to dissection. Will check ESR, CRP. Follow-up viral studies from CSF. At this time continue empirically acyclovir, ceftriaxone, vancomycin. Pending COVID-19 PCR. Rapid test was negative. Sepsis present on admission. Improving. Continue treatment. Status: Acute Qualifiers: Headache type: unspecified (2) Fever: Fever appears better since last night. Last episode one .2 and 2109 on 07/13. As above. Status: Acute (3) Leukocytosis: Better today. Presumably secondary to infection, viral versus bacterial. Cannot rule out steroid effect Status: Acute (4) Diabetes mellitus: Sliding scale insulin Status: Inactive (5) Hypertension: Continue home medications Status: Inactive Additional A&P Information History of asthma, no evidence of exacerbation full code Heparin for DVT prophylaxis starting tonight Attestations Medical Necessity Statement*: Continue admission for assessment and management of possible meningitis. Improving sepsis. Coding Level of Care Code Acute Molder Operator for g Fwd Diagnoses Headache R51.9 Headache type: unspecified Fever R50.9 Leukocytosis D72.829 Diabetes mellitus E11.9 Hypertension I10
[2020-07-14] MEDS: potassium chloride oral liq 20 mEq/15 mL UDC 40 MEQ PO (20:32)
[2020-07-14 20:37] LABS: Quest SARS-CoV-2 RNA NOT DETECTED (NOT DETECTED)
[2020-07-14 21:47] LABS: Glucose Point of Care 225 mg/dL (70-110)
[2020-07-15] VITALS (8 sets, daily range): BP systolic 130–186; BP diastolic 71–85; PULSE 63–75; RESP 12–20; TEMP 36.6–37.3; O2SAT 94–98
[2020-07-15] MEDS: cefTRIAXone 2,000 MG in sodium chloride 0.9% (plus) 50 ML 100 MG IV ×3 (00:29→23:19)
[2020-07-15 00:33] LABS: Vancomycin Trough 6.9 ug/mL (10-15)
[2020-07-15] MEDS: ketorolac 30 mg/mL INJ IVP ×3 (00:38→15:16)
[2020-07-15] MEDS: vancomycin 1,250 MG/250 ML PIGGYBACK 250 MG IV (01:22)
[2020-07-15] MEDS: carvedilol 25 mg Tablet PO ×2 (04:28→18:18)
--- NOTE | 2020-07-15 04:28 | PC.NURSE ---
Persistent elevated BP. 183/85. P64. Per Dr. Barnett, administer 0900 Coreg early.
[2020-07-15] MEDS: heparin 5,000 unit/mL INJ 1 mL 5000 UNIT SUBCUT ×2 (06:01→18:18)
[2020-07-15 07:02] LABS: Glucose Point of Care 157 mg/dL (70-110)
[2020-07-15] MEDS: hyDRALAzine 10 mg Tablet PO ×2 (08:34→18:18)
[2020-07-15 09:08] LABS: Basophils % 0.2 %; Eosinophils # 0.2 10^3/uL (0.0-0.8); Eosinophils % 2.6 %; Hematocrit 41.4 % (37.0-47.0); Hemoglobin 13.5 g/dL (11.5-15.3); Lymphocytes # 1.2 10^3/uL (0.8-4.8); Lymphocytes % 13.9 %; Mean Corpuscular HGB Conc 32.6 g/dL (30.0-36.0); Mean Corpuscular Hemoglobin 29.5 pg (28.0-34.0); Mean Corpuscular Volume 90.4 fL (81-99); Mean Platelet Volume 10.3 fL (7.4-10.4); Monocytes # 0.7 10^3/uL (0.2-0.9); Neutrophils # 6.16 10^3/uL (1.8-7.7); Neutrophils % 73.6 %; Nucleated Red Blood Cells % 0 %; Platelet Count 180 10^3/cmm (130-400); Red Blood Count 4.58 10^6/uL (4.1-5.3); Red Cell Distribution Width 12.1 % (12.1-15.1); White Blood Count 8.4 10^3/uL (4.0-10.0)
[2020-07-15 09:25] LABS: Alanine Aminotransferase 12 U/L (0-33); Albumin Level 3.2 g/dL (3.5-5.2); Alkaline Phosphatase 89 IU/L (35-105); Anion Gap 13.3 (5-19); Aspartate Amino Transferase 14 U/L (0-32); Blood Urea Nitrogen 9 mg/dL (8-23); Calcium 8.4 mg/dL (8.5-10.5); Carbon Dioxide 27 mmol/L (22-29); Chloride 97 mmol/L (98-107); Globulin 3.4 g/dL (1.3-4.6); Glomerular Filtration Rate 158.3 mL/min (90-130); Glucose 200 mg/dL (65-115); Osmolality Calculated 282 mOsm/kg (285-295); Potassium 3.3 mmol/L (3.5-5.1); Sodium 134 mmol/L (136-145); Total Bilirubin 0.4 mg/dL (0.15-1.2); Total Protein 6.6 g/dL (6.6-8.7)
[2020-07-15] MEDS: vancomycin 1,000 MG in sodium chloride 0.9% 250 ML 250 MG IV (10:36)
[2020-07-15] MEDS: sodium chloride 0.9% 1,000 ML 75 ML IV (10:36)
[2020-07-15 12:03] LABS: Glucose Point of Care 186 mg/dL (70-110)
[2020-07-15] MEDS: acetaminophen 325 mg Tablet 650 MG PO (15:15)
--- NOTE | 2020-07-15 16:20 | PM.PN ---
Subjective Subjective: Interval history: Still bothered by headache. No vision changes. No trouble breathing. No nausea vomiting or diarrhea. No rash. Vitals/I&O/Wt Last Vital Signs Temp 98.1 F 07/15/20 16:00 Pulse 68 07/15/20 16:00 Resp 16 07/15/20 16:00 BP 166/82 07/15/20 16:00 Pulse Ox 94 07/15/20 16:00 07/15/20 07/15/20 07/15/20 06:59 14:59 22:59 Intake Total 405.4 / 2576.2 1355.4 / 1355.4 Output Total 100 / 100 Balance 405.4 / 1476.2 1255.4 / 1255.4 Physical Exam Const: COMMON NORMALS: no acute distress, patient oriented x3 and alert ORIENTATION/CONSCIOUSNESS: Yes oriented to person, Yes oriented to place and Yes oriented to time OTHER: Appears uncomfortable with headache. With good insight. No aphasia or dysarthria. HENMT: COMMON NORMALS: oropharynx normal Neck/C-Spine: COMMON NORMALS: no JVD Resp: COMMON NORMALS: normal respiratory effort and clear to auscultation bilaterally AUSCULTATION: clear to auscultation bilaterally Cardio: COMMON NORMALS: no JVD, regular rhythm, S1 normal heart sound present, S2 normal heart sound present and No murmurs present (Cardio) RHYTHM: regular rhythm HEART SOUNDS: S1 normal heart sound present and S2 normal heart sound present GI: COMMON NORMALS: Normal to inspection, nondistended, normoactive bowel sounds present, Soft to palpation and non-tender PALPATION: Yes Soft to palpation Extremity: COMMON NORMALS: no joint enlargement and no pedal edema Neuro: COMMON NORMALS: patient oriented x3 and moves all extremities SENSORIUM/ORIENTATION: Yes alert, Yes oriented to person, Yes oriented to place and Yes oriented to time COORDINATION/BALANCE: [id number] test normal SPEECH: speech normal GAIT: Yes Unable to assess gait SENSORY EXAM: Yes extremities (normal) and Normal double simultaneous stimulation for sensation; No sensory level loss detected MOTOR EXAM: 5/5 motor strength present throughout COORDINATION: [id number] test normal OTHER: Visual villagomez full to confrontation. Skin: COMMON NORMALS: no rashes or lesions noted GENERAL SKIN EXAM: no rashes or lesions noted Data : 07/15/20 08:45 07/15/20 08:45 Micro: Microbiology 07/13/20 10:00 Gram Stain - Final Cerebrospinal Fluid CSF Culture - Preliminary 07/13/20 14:55 Blood Culture - Preliminary Blood NEGATIVE TO DATE 07/13/20 13:21 Blood Culture - Preliminary Blood NEGATIVE TO DATE A&P Assessment and plan (1) Headache: At this time suspected viral meningitis. Her fever is resolved. Leukocytosis resolved. Headache is persistent. We are following up with request for MRI, but I am told this cannot be completed today. Discussed with her and her . Given she is defervesced, CSF bacterial antigens unremarkable, and without growth on bacterial culture, we discussed options of continuing antibiotic therapy versus discontinuation currently and monitoring in the hospital with continuation of acyclovir for now. They are agreeable to for now discontinue to antibiotics. If starting to risk that there may be partially treated bacterial meningitis affecting the sample given 3 days of no excepting therapy prior to admission. We will at this time stop vancomycin. Monitor. Conitnue Rocephin. Will DC IV fluid. Continue supportive care. Obtain MRI. Obtain CT temporal bones. Post-LP headache is also a possibility. Request for coffee with meals. Unremarkable carotid duplex, without hemodynamically significant stenosis in carotids or vertebrals noted. ESR, CRP are elevated. Coronavirus rapid and PCR negative. Follow-up viral studies from CSF. pending [place] encephalitis serology. At this time continue empirically acyclovir, ceftriaxone, vancomycin. Pending COVID-19 PCR. Rapid test was negative. Sepsis present on admission. Improving. Continue treatment. Status: Acute Qualifiers: Headache type: unspecified (2) Fever: Fever appears better sinceLast episode 101.2 and 2110 on 07/13. As above. Status: Acute (3) Leukocytosis: Now resolved. Presumably secondary to infection. Cannot rule out steroid effect Status: Acute (4) Diabetes mellitus: Sliding scale insulin Status: Inactive (5) Hypertension: May benefit from better control. DC IVF. Add lisinopril 5mg. Status: Inactive Additional A&P Information History of asthma, no evidence of exacerbation full code Heparin for DVT prophylaxis starting tonight Attestations Medical Necessity Statement*: Continue admission for assessment management of persistent headache, possible viral meningitis. Monitoring after discontinuation of antibiotic therapy with risk of possible partially treated bacterial meningitis. With concomitant sinusitis. Possible post LP headache. Coding Level of Care Code Acute Chief Operator Hydroformer for Chg Fwd Diagnoses Headache R51.9 Headache type: unspecified Fever R50.9 Leukocytosis D72.829 Diabetes mellitus E11.9 Hypertension I10
--- NOTE | 2020-07-15 16:48 | CTR_ITS ---
PROCEDURE INFORMATION: Exam: CT Temporal Bones Without Contrast. Exam date and time: 07/15/2020 8:19 PM Age: 70 years old Clinical indication: Pain; Headache; Type not specified; Additional info: Sinusitis, persistent headache TECHNIQUE: Imaging protocol: Computed tomography images of the temporal bones without contrast. Radiation optimization: All CT scans at this facility use at least one of these dose optimization techniques: automated exposure control; mA and/or kV adjustment per patient size (includes targeted exams where dose is matched to clinical indication); or iterative reconstruction. COMPARISON: CT head wo con* [id number] 07/13/2020 6:26 AM RADIATION DOSE METRICS: Total DLP (mGy-cm): 1002.99 FINDINGS: Right inner ear: Normal. Right ossicles and middle ear: Normal. The middle ear ossicles are intact. Right external auditory canal: Normal. Right facial nerve canal: Normal. Right jugular foramen: No jugular dehiscence. Right carotid canal: No aberrent carotid canal. Right mastoid air cells: Normal. No mastoid effusions. Left inner ear: Normal. Left ossicles and middle ear: Normal. The middle ear ossicles are intact. Left external auditory canal: Normal. Left facial nerve canal: Normal. Left jugular foramen: No jugular dehiscence. Left carotid canal: No aberrent carotid canal. Left mastoid air cells: Normal. No mastoid effusions. Paranasal sinuses: Small polyp or retention cyst in the inferior right maxillary sinus. Opacification of the right sphenoid sinus and multiple bilateral ethmoid air cells. Mild mucosal thickening in the left maxillary and sphenoid sinuses. Soft tissues: Unremarkable. CT/CT temporal bone wo con* [id number] IMPRESSION: 1. No acute abnormality identified within the temporal bones. 2. Inflammatory changes in the sinuses. Radiation Dose CTDIVOL = (mGy): DLP = 1002.99 (mGy-cm)
[2020-07-15 17:29] LABS: Glucose Point of Care 131 mg/dL (70-110)
[2020-07-15] MEDS: potassium chloride oral liq 20 mEq/15 mL UDC 40 MEQ PO (18:17)
[2020-07-15] MEDS: lisinopril 5 mg Tablet PO (18:18)
--- NOTE | 2020-07-15 19:32 | USR_ITS ---
PROCEDURE INFORMATION: Exam: US Duplex Bilateral Extracranial Arteries Exam date and time: 07/15/2020 9:26 AM Age: 70 years old Clinical indication: Pain; Headache; Other: PT has covid; Additional info: Include vertebrals. Persistent headache. TECHNIQUE: Imaging protocol: Real-time Duplex ultrasound scan of the bilateral carotid and vertebral arteries combining aburto scale, color Doppler and spectral waveform analysis. Bilateral exam. COMPARISON: CT head wo con* [id number] 07/13/2020 6:26 AM FINDINGS: Right common carotid artery: Proximal 104.8 cm/second. Mid 56.4 cm/second. Distal/bulb: 51.9 cm/second. Right internal carotid artery: Proximal 44.8 cm/second. Mid 62.7 cm/second. Distal 57.3 cm/second. Right ICA/CCA ratio: 1.11. Right external carotid artery: 98.5 cm/second. Right vertebral artery: 35.0 cm/second, antegrade. Left common carotid artery: Proximal 84.6 cm/second. Mid 63.5 cm/second. Distal/bulb: 64.6 cm/second. Left internal carotid artery: Proximal 37.0 cm/second. Mid 52.2 cm/second. Distal 55.0 cm/second. Left ICA/CCA ratio: 0.87. Left external carotid artery: 65.2 cm/second. Left vertebral artery: 21.2 cm/second, antegrade. Other findings: Right proximal subclavian: 90.5 cm/second, triphasic. Left proximal subclavian: 138.0 cm/second, biphasic. US/CV carotid duplex BI* [id number] IMPRESSION: No hemodynamically significant stenosis by peak systolic velocity criteria. REFERENCES: SRU CRITERIA. The degree of internal carotid artery stenosis is based on criteria defined by the Society of Radiologists in Ultrasound (SRU). Normal is no stenosis. Mild is less than 50% stenosis. Moderate is 50-69% stenosis. Severe is greater than 69% stenosis to near occlusion. Near occlusion is a markedly narrowed lumen. Total occlusion is no detectable patent lumen.
[2020-07-15 22:01] LABS: Glucose Point of Care 156 mg/dL (70-110)
[2020-07-16] VITALS (10 sets, daily range): BP systolic 151–198; BP diastolic 71–92; PULSE 64–78; RESP 12–20; TEMP 36.4–37.1; O2SAT 95–97
[2020-07-16] MEDS: acetaminophen 325 mg Tablet 650 MG PO ×3 (00:12→22:55)
[2020-07-16] MEDS: heparin 5,000 unit/mL INJ 1 mL 5000 UNIT SUBCUT ×2 (06:01→18:50)
[2020-07-16 06:44] LABS: Alanine Aminotransferase 14 U/L (0-33); Albumin Level 3.2 g/dL (3.5-5.2); Alkaline Phosphatase 75 IU/L (35-105); Anion Gap 13.2 (5-19); Aspartate Amino Transferase 16 U/L (0-32); Blood Urea Nitrogen 8 mg/dL (8-23); Calcium 8.4 mg/dL (8.5-10.5); Carbon Dioxide 28 mmol/L (22-29); Chloride 96 mmol/L (98-107); Globulin 3.3 g/dL (1.3-4.6); Glomerular Filtration Rate 158.3 mL/min (90-130); Glucose 161 mg/dL (65-115); Osmolality Calculated 280 mOsm/kg (285-295); Potassium 3.2 mmol/L (3.5-5.1); Sodium 134 mmol/L (136-145); Total Bilirubin 0.4 mg/dL (0.15-1.2); Total Protein 6.5 g/dL (6.6-8.7)
[2020-07-16 06:45] LABS: Basophils % 0.4 %; Eosinophils # 0.2 10^3/uL (0.0-0.8); Eosinophils % 2.7 %; Hemoglobin 13.4 g/dL (11.5-15.3); Lymphocytes # 1.3 10^3/uL (0.8-4.8); Lymphocytes % 16.8 %; Mean Corpuscular HGB Conc 32.7 g/dL (30.0-36.0); Mean Corpuscular Hemoglobin 29.3 pg (28.0-34.0); Mean Corpuscular Volume 89.7 fL (81-99); Mean Platelet Volume 10.5 fL (7.4-10.4); Monocytes # 0.7 10^3/uL (0.2-0.9); Monocytes % 8.7 %; Neutrophils # 5.44 10^3/uL (1.8-7.7); Neutrophils % 69.4 %; Nucleated Red Blood Cells % 0 %; Platelet Count 219 10^3/cmm (130-400); Red Blood Count 4.57 10^6/uL (4.1-5.3); Red Cell Distribution Width 11.9 % (12.1-15.1); White Blood Count 7.8 10^3/uL (4.0-10.0)
[2020-07-16 07:32] LABS: Magnesium 1.9 mg/dL (1.7-2.3)
[2020-07-16 07:58] LABS: Glucose Point of Care 156 mg/dL (70-110)
[2020-07-16] MEDS: ibuprofen 600 mg Tablet PO (08:00)
[2020-07-16] MEDS: lisinopril 5 mg Tablet PO (08:01)
[2020-07-16] MEDS: hyDRALAzine 10 mg Tablet PO ×2 (08:01→18:52)
[2020-07-16] MEDS: carvedilol 25 mg Tablet PO ×2 (08:01→18:50)
--- NOTE | 2020-07-16 10:34 | DCPLANNER ---
Phoned into the room and explained the IM to pt. No questions, copy sent into the room via the nurse.
[2020-07-16 10:35] LABS: Glucose Point of Care 274 mg/dL (70-110)
[2020-07-16] MEDS: cefTRIAXone 2,000 MG in sodium chloride 0.9% (plus) 50 ML 100 MG IV ×2 (10:51→22:54)
[2020-07-16] MEDS: potassium chloride oral liq 20 mEq/15 mL UDC PO (15:21)
[2020-07-16 17:03] LABS: Glucose Point of Care 147 mg/dL (70-110)
--- NOTE | 2020-07-16 19:51 | PM.PN ---
Subjective Subjective: Interval history: She is now feeling much better. Currently headache has resolved. She is afraid that the headache might come back, however, stating I am just waiting for it to come back . She otherwise denies any nausea vomiting or diarrhea. No new rash. No chest pain or pressure. No shortness of breath or cough. Vitals/I&O/Wt Last Vital Signs Temp 98.4 F 07/16/20 19:42 Pulse 67 07/16/20 19:42 Resp 18 07/16/20 19:42 BP 151/77 07/16/20 19:42 Pulse Ox 95 07/16/20 19:42 07/16/20 07/16/20 07/16/20 06:59 14:59 22:59 Intake Total 165.4 / 1756.2 475.4 / 475.4 Output Total 200 / 200 Balance 165.4 / 1656.2 275.4 / 275.4 Physical Exam Const: COMMON NORMALS: no acute distress, patient oriented x3 and alert ORIENTATION/CONSCIOUSNESS: Yes oriented to person, Yes oriented to place and Yes oriented to time OTHER: Awake, alert, comfortable, cooperative. Conversant. With good insight. No aphasia or dysarthria. HENMT: COMMON NORMALS: oropharynx normal Neck/C-Spine: COMMON NORMALS: no JVD Resp: COMMON NORMALS: normal respiratory effort and clear to auscultation bilaterally AUSCULTATION: clear to auscultation bilaterally Cardio: COMMON NORMALS: no JVD, regular rhythm, S1 normal heart sound present, S2 normal heart sound present and No murmurs present (Cardio) RHYTHM: regular rhythm HEART SOUNDS: S1 normal heart sound present and S2 normal heart sound present GI: COMMON NORMALS: Normal to inspection, nondistended, normoactive bowel sounds present, Soft to palpation and non-tender PALPATION: Yes Soft to palpation Extremity: COMMON NORMALS: no joint enlargement and no pedal edema Neuro: COMMON NORMALS: patient oriented x3 and moves all extremities SENSORIUM/ORIENTATION: Yes alert, Yes oriented to person, Yes oriented to place and Yes oriented to time COORDINATION/BALANCE: [id number] test normal SPEECH: speech normal GAIT: Yes Unable to assess gait SENSORY EXAM: Yes extremities (normal) and Normal double simultaneous stimulation for sensation; No sensory level loss detected MOTOR EXAM: 5/5 motor strength present throughout COORDINATION: [id number] test normal OTHER: Visual villagomez full to confrontation. Skin: COMMON NORMALS: no rashes or lesions noted GENERAL SKIN EXAM: no rashes or lesions noted Data : 07/16/20 05:45 07/16/20 05:45 Micro: Microbiology 07/13/20 10:00 Gram Stain - Final Cerebrospinal Fluid CSF Culture - Final A&P Assessment and plan (1) Headache: Today she is doing much better. Her headache has so far resolved. Discussed with her options regarding going forward, later also discussed with her . Discussed continuation of IV antibiotic, acyclovir, although her symptomatology does not suggest bacterial meningitis, or HSV encephalitis. We discussed that there is a small, but not entirely limited possibility of presence of bacterial meningitis initially, although this again appears to be less likely given the pattern of CSF findings, lack of growth on culture. For now we have been continuing Rocephin due to sinus infection which appears may have been symptomatic with headache, however, she is agreeable at this time with discontinuation of acyclovir. We will continue to monitor in the hospital. Cautioned her and her to seek medical attention in case there is any return of fevers, headache, any concerning symptoms as again small possibility of bacterial meningitis which is partially treated and may return cannot be 100% excluded. Continue to also monitor and optimize her blood pressures, which were quite high this morning. Doing better later morning and afternoon. Lower possibility of PRES, although symptomatology not entirely consistent. CT temporal bones unremarkable. At this time suspected viral meningitis. Her fever is resolved. Leukocytosis resolved. MRI brain was requested, although was not performed due to holiday. Post-LP headache is also a possibility. Requested for coffee with meals. Unremarkable carotid duplex, without hemodynamically significant stenosis in carotids or vertebrals noted. ESR, CRP are elevated. Requested NISHA, ANCA. Does not appear to have symptoms to suggest giant cell arteritis. Coronavirus rapid and PCR negative. Follow-up viral studies from CSF. pending [place] encephalitis serology. At this time continue empirically acyclovir, ceftriaxone, vancomycin. Pending COVID-19 PCR. Rapid test was negative. Sepsis present on admission. Improving. Continue treatment. Status: Acute Qualifiers: Headache type: unspecified (2) Fever: Fever appears better sinceLast episode 101.2 and 2110 on 07/13. As above. Status: Acute (3) Leukocytosis: Now resolved. Presumably secondary to infection. Cannot rule out steroid effect Status: Acute (4) Diabetes mellitus: Sliding scale insulin Status: Inactive (5) Hypertension: Would benefit from better control. Increase lisinopril to 10 mg. Status: Inactive Additional A&P Information History of asthma, no evidence of exacerbation full code Heparin for DVT prophylaxis starting tonight Attestations Medical Necessity Statement*: Continue admission for assessment management after sepsis of unknown origin, possible meningitis, de-escalation of therapy with additional work-up and monitoring. If doing well, perhaps may build to return home within 1-2 days. Coding Level of Care Code Acute Aquatic Scientist for Chg Fwd Diagnoses Headache R51.9 Headache type: unspecified Fever R50.9 Leukocytosis D72.829 Diabetes mellitus E11.9 Hypertension I10
[2020-07-16 20:58] LABS: Glucose Point of Care 218 mg/dL (70-110)
[2020-07-17] VITALS (10 sets, daily range): BP systolic 123–179; BP diastolic 75–80; PULSE 62–73; RESP 16–20; TEMP 36.7–37.4; O2SAT 94–98
[2020-07-17 05:21] LABS: Basophils # 0.1 10^3/uL (0.0-0.1); Basophils % 0.7 %; Eosinophils # 0.2 10^3/uL (0.0-0.8); Eosinophils % 2.9 %; Hematocrit 41.3 % (37.0-47.0); Hemoglobin 13.6 g/dL (11.5-15.3); Lymphocytes # 1.7 10^3/uL (0.8-4.8); Lymphocytes % 23.7 %; Mean Corpuscular HGB Conc 32.9 g/dL (30.0-36.0); Mean Corpuscular Hemoglobin 29.6 pg (28.0-34.0); Mean Platelet Volume 9.9 fL (7.4-10.4); Monocytes # 0.7 10^3/uL (0.2-0.9); Monocytes % 9.3 %; Neutrophils # 4.36 10^3/uL (1.8-7.7); Neutrophils % 60.9 %; Nucleated Red Blood Cells % 0 %; Platelet Count 236 10^3/cmm (130-400); Red Blood Count 4.59 10^6/uL (4.1-5.3); White Blood Count 7.2 10^3/uL (4.0-10.0)
[2020-07-17 05:47] LABS: Alanine Aminotransferase 16 U/L (0-33); Albumin Level 3.2 g/dL (3.5-5.2); Alkaline Phosphatase 73 IU/L (35-105); Anion Gap 13.2 (5-19); Aspartate Amino Transferase 16 U/L (0-32); Blood Urea Nitrogen 8 mg/dL (8-23); Calcium 8.7 mg/dL (8.5-10.5); Carbon Dioxide 27 mmol/L (22-29); Chloride 101 mmol/L (98-107); Globulin 3.6 g/dL (1.3-4.6); Glomerular Filtration Rate 158.3 mL/min (90-130); Glucose 167 mg/dL (65-115); Osmolality Calculated 288 mOsm/kg (285-295); Potassium 3.2 mmol/L (3.5-5.1); Sodium 138 mmol/L (136-145); Total Bilirubin 0.3 mg/dL (0.15-1.2); Total Protein 6.8 g/dL (6.6-8.7)
[2020-07-17 07:08] LABS: Glucose Point of Care 237 mg/dL (70-110)
[2020-07-17] MEDS: carvedilol 25 mg Tablet PO ×2 (09:43→17:56)
[2020-07-17] MEDS: heparin 5,000 unit/mL INJ 1 mL 5000 UNIT SUBCUT ×2 (09:43→17:56)
[2020-07-17] MEDS: lisinopril 5 mg Tablet 10 MG PO (09:44)
[2020-07-17] MEDS: hyDRALAzine 10 mg Tablet PO ×2 (11:23→17:56)
[2020-07-17 11:28] LABS: Glucose Point of Care 185 mg/dL (70-110)
[2020-07-17] MEDS: cefTRIAXone 2,000 MG in sodium chloride 0.9% (plus) 50 ML 100 MG IV ×2 (14:12→23:45)
[2020-07-17] MEDS: amlodipine 10 mg Tablet PO (15:37)
--- NOTE | 2020-07-17 17:16 | PM.PN ---
Subjective Subjective: Interval history: Continues to have headache and increased blood pressure to systolic 170. Feel amlodipine 10 mg added today. Used to be on amlodipine previously which was discontinued due to lower extremity edema. Medications: Reviewed: Yes Vitals/I&O/Wt Last Vital Signs Temp 98.4 F 07/17/20 15:41 Pulse 73 07/17/20 15:41 Resp 20 H 07/17/20 15:41 BP 172/77 07/17/20 15:41 Pulse Ox 95 07/17/20 15:41 07/17/20 07/17/20 07/17/20 06:59 14:59 22:59 Intake Total 50 / 575.4 720 / 720 Balance 50 / 375.4 720 / 720 Physical Exam Narrative: EXAM NARRATIVE: GEN: Awake, alert and oriented, no acute distress CVS: S1S2 N RS: CTA B/L Abd: Soft, nt/nd , bs+ SECOND STEWARD: no focal neuro deficits Data : 07/17/20 05:09 07/17/20 05:09 A&P Assessment and plan (1) Headache: Today she is doing much better. Her headache has so far resolved. Discussed with her options regarding going forward, later also discussed with her . Discussed continuation of IV antibiotic, acyclovir, although her symptomatology does not suggest bacterial meningitis, or HSV encephalitis. We discussed that there is a small, but not entirely limited possibility of presence of bacterial meningitis initially, although this again appears to be less likely given the pattern of CSF findings, lack of growth on culture. For now we have been continuing Rocephin due to sinus infection which appears may have been symptomatic with headache, however, she is agreeable at this time with discontinuation of acyclovir. We will continue to monitor in the hospital. Cautioned her and her to seek medical attention in case there is any return of fevers, headache, any concerning symptoms as again small possibility of bacterial meningitis which is partially treated and may return cannot be 100% excluded. Continue to also monitor and optimize her blood pressures, which were quite high this morning. Doing better later morning and afternoon. Lower possibility of PRES, although symptomatology not entirely consistent. CT temporal bones unremarkable. At this time suspected viral meningitis. Her fever is resolved. Leukocytosis resolved. MRI brain was requested, although was not performed due to holiday. Post-LP headache is also a possibility. Requested for coffee with meals. Unremarkable carotid duplex, without hemodynamically significant stenosis in carotids or vertebrals noted. ESR, CRP are elevated. Requested NIHSA, ANCA. Does not appear to have symptoms to suggest giant cell arteritis. Coronavirus rapid and PCR negative. Follow-up viral studies from CSF. pending [place] encephalitis serology. At this time continue empirically acyclovir, ceftriaxone, vancomycin. Pending COVID-19 PCR. Rapid test was negative. Sepsis present on admission. Improving. Continue treatment. Status: Acute Qualifiers: Headache type: unspecified (2) Fever: Fever appears better sinceLast episode 101.2 and 2110 on 07/13. As above. Status: Acute (3) Leukocytosis: Now resolved. Presumably secondary to infection. Cannot rule out steroid effect Status: Acute (4) Diabetes mellitus: Sliding scale insulin Status: Inactive (5) Hypertension: Would benefit from better control. Increase lisinopril to 10 mg. Status: Inactive Additional A&P Information History of asthma, no evidence of exacerbation full code Heparin for DVT prophylaxis starting tonight plan for today: ongoing headaches, uncontrolled systolic BP, quantiferon positive earlier this year, will attenpt to add MTB studies to CSF though low suspicion. MRI tomnorrow Attestations Medical Necessity Statement*: see plan for today as above Coding Level of Care Code Acute Equipment Manager for Mony Marr Diagnoses Headache R51.9 Headache type: unspecified Fever R50.9 Leukocytosis D72.829 Diabetes mellitus E11.9 Hypertension I10
[2020-07-17 18:07] LABS: Glucose Point of Care 167 mg/dL (70-110)
[2020-07-17 21:50] LABS: Glucose Point of Care 231 mg/dL (70-110)
[2020-07-18] VITALS (7 sets, daily range): BP systolic 134–174; BP diastolic 69–81; PULSE 65–83; RESP 16–17; TEMP 36.7–37.1; O2SAT 94–97
[2020-07-18] MEDS: heparin 5,000 unit/mL INJ 1 mL 5000 UNIT SUBCUT ×2 (06:04→18:58)
[2020-07-18 08:05] LABS: Glucose Point of Care 170 mg/dL (70-110)
[2020-07-18] MEDS: lisinopril 5 mg Tablet 10 MG PO (10:43)
[2020-07-18] MEDS: amlodipine 10 mg Tablet PO (10:44)
[2020-07-18] MEDS: carvedilol 25 mg Tablet PO ×2 (10:44→18:52)
[2020-07-18] MEDS: hyDRALAzine 10 mg Tablet PO ×2 (10:50→18:59)
[2020-07-18 12:13] LABS: Glucose Point of Care 174 mg/dL (70-110)
[2020-07-18 12:38] LABS: Anti-Nuclear Antibody Screen NEGATIVE (NEGATIVE)
--- NOTE | 2020-07-18 14:30 | MR_ITS ---
WS: [id number] MRA HEAD TECHNIQUE: Axial 3-D TOF images obtained with axial images and axial, sagittal, and coronal 2-D refor matted images. CLINICAL INFORMATION: persistent severe posterior headache, sinusitis COMPARISON: None. FINDINGS: Distal vertebral arteries are patent. Basilar artery is patent. Normal vascularity to the POSTAL SORTING OFFICER territo ry bilaterally. Patent right posterior communicating artery. Normal vascularity to the POSTAL SORTING OFFICER territory bilaterally. Both ICAs are patent at the skull base. Normal vascularity to the CHERYLE and MCA territories bilaterally . No evidence of high-grade proximal stenosis or aneurysm. MR/MR angio head wo con [id number] IMPRESSION: Normal intracranial MRa.
--- NOTE | 2020-07-18 14:30 | MR_ITS ---
WS: [id number] MR VENOGRAM TECHNIQUE: Axial 3-D TOF images obtained with axial images and axial, sagittal, and coronal 2-D refor matted images. CLINICAL INFORMATION: persistent severe posterior headache, sinusitis COMPARISON: None. FINDINGS: Normal sagittal sinus. Normal internal cerebral sinus. Normal straight sinus. Dominant right transver se sinus. Right sigmoid sinus is patent. 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 No evidence of dural sinus thrombosis. MR/[place] [id number] IMPRESSION: No evidence of dural sinus thrombosis.
--- NOTE | 2020-07-18 14:30 | MR_ITS ---
WS: [id number] MRI HEAD WITHOUT CONTRAST TECHNIQUE: Sagittal T1, T2 axial, T2 axial FLAIR, axial and coronal T1 images, axial susceptibility w eighted imaging, axial diffusion weighted images, and coronal T2 images were obtained. CLINICAL INFORMATION: persistent headache, meningeal signs, sinusitis COMPARISON: None. FINDINGS: No evidence of restricted diffusion to suggest acute ischemia. Ventricular system and basal cisterns are patent. Mild small vessel changes. Mild parenchymal volume loss. Normal posterior fossa. Normal v ascular flow voids at the skull base. No extra-axial fluid collections. No evidence of mass or mass effect. Mastoid air cells well aerated. Partial opacification with inspis sated secretions in the right posterior ethmoid air cells and sphenoid sinus. No hemosiderin on the s usceptibility weighted images. Normal optic chiasm and pituitary infundibulum. Temporal lobes and hip pocampal formations are normal in appearance. Normal cavernous sinuses and Meckel's cave. MR/MR head wo con* [id number] IMPRESSION: 1. No evidence of restricted diffusion to suggest acute ischemia. 2. Right posterior ethmoid and sphenoid sinusitis with inspissated secretions. Opacification right sphenoid sinus ostia. 3. Mastoid air cells well aerated. 4. Mild small vessel changes with mild parenchymal volume loss. 5. No hemosiderin on susceptibly weighted images. Temporal lobes and hippocamp al formations are normal in appearance. 6. Normal optic chiasm and pituitary infundibulum.
--- NOTE | 2020-07-18 16:00 | PM.PN ---
Subjective Subjective: Interval history: headache much improved, BP better after starting amlodipine, pending MRI results taken this afternoon Medications: Reviewed: Yes Vitals/I&O/Wt Last Vital Signs Temp 98.8 F 07/18/20 20:00 Pulse 71 07/18/20 20:00 Resp 17 07/18/20 20:00 BP 138/81 07/18/20 20:00 Pulse Ox 94 07/18/20 20:00 07/18/20 07/18/20 07/19/20 14:59 22:59 06:59 Intake Total 720 / 720 480 / 1200 Balance 720 / 720 480 / 1200 Physical Exam Narrative: EXAM NARRATIVE: GEN: Awake, alert and oriented, no acute distress CVS: S1S2 N RS: CTA B/L Abd: Soft, nt/nd , bs+ NEUROPSYCHOLOGY SERVICE DIRECTOR: no focal neuro deficits Data : 07/17/20 05:09 07/17/20 05:09 Micro: Microbiology 07/13/20 14:55 Blood Culture - Final Blood NO GROWTH AFTER 5 DAYS 07/13/20 13:21 Blood Culture - Final Blood NO GROWTH AFTER 5 DAYS A&P Assessment and plan (1) Headache: Today she is doing much better. Her headache has so far resolved. Discussed with her options regarding going forward, later also discussed with her . Discussed continuation of IV antibiotic, acyclovir, although her symptomatology does not suggest bacterial meningitis, or HSV encephalitis. We discussed that there is a small, but not entirely limited possibility of presence of bacterial meningitis initially, although this again appears to be less likely given the pattern of CSF findings, lack of growth on culture. For now we have been continuing Rocephin due to sinus infection which appears may have been symptomatic with headache, however, she is agreeable at this time with discontinuation of acyclovir. We will continue to monitor in the hospital. Cautioned her and her to seek medical attention in case there is any return of fevers, headache, any concerning symptoms as again small possibility of bacterial meningitis which is partially treated and may return cannot be 100% excluded. Continue to also monitor and optimize her blood pressures, which were quite high this morning. Doing better later morning and afternoon. Lower possibility of PRES, although symptomatology not entirely consistent. CT temporal bones unremarkable. At this time suspected viral meningitis. Her fever is resolved. Leukocytosis resolved. MRI brain was requested, although was not performed due to holiday. Post-LP headache is also a possibility. Requested for coffee with meals. Unremarkable carotid duplex, without hemodynamically significant stenosis in carotids or vertebrals noted. ESR, CRP are elevated. Requested NISHA, ANCA. Does not appear to have symptoms to suggest giant cell arteritis. Coronavirus rapid and PCR negative. Follow-up viral studies from CSF. pending [place] encephalitis serology. At this time continue empirically acyclovir, ceftriaxone, vancomycin. Pending COVID-19 PCR. Rapid test was negative. Sepsis present on admission. Improving. Continue treatment. Status: Acute Qualifiers: Headache type: unspecified (2) Fever: Fever appears better sinceLast episode 101.2 and 2110 on 07/13. As above. Status: Acute (3) Leukocytosis: Now resolved. Presumably secondary to infection. Cannot rule out steroid effect Status: Acute (4) Diabetes mellitus: Sliding scale insulin Status: Inactive (5) Hypertension: Would benefit from better control. Increase lisinopril to 10 mg. Status: Inactive Additional A&P Information History of asthma, no evidence of exacerbation full code Heparin for DVT prophylaxis starting tonight plan for today: pending MRI resuls, BP much better, discontinue amlodipine as did not tolerate in the past due to LE edema, increase hydralazine, monitor BP, pending MRI results Attestations Medical Necessity Statement*: titrating BP medications, pending MRI results Coding Level of Care Code Acute Counseling Director for Chg Fwd Diagnoses Headache R51.9 Headache type: unspecified Fever R50.9 Leukocytosis D72.829 Diabetes mellitus E11.9 Hypertension I10
[2020-07-18 17:05] LABS: Glucose Point of Care 221 mg/dL (70-110)
[2020-07-18] MEDS: cefTRIAXone 2,000 MG in sodium chloride 0.9% (plus) 50 ML 100 MG IV (17:07)
[2020-07-18 22:03] LABS: Glucose Point of Care 192 mg/dL (70-110)
[2020-07-19] VITALS: BP 148/70; PULSE 70; RESP 17; TEMP 36.9; O2SAT 98
[2020-07-19 04:00] VITALS: BP 122/70; PULSE 65; RESP 17; TEMP 37; O2SAT 97
[2020-07-19] MEDS: cefTRIAXone 2,000 MG in sodium chloride 0.9% (plus) 50 ML 100 MG IV (04:57)
[2020-07-19] MEDS: heparin 5,000 unit/mL INJ 1 mL 5000 UNIT SUBCUT (06:52)
[2020-07-19 06:53] LABS: Glucose Point of Care 205 mg/dL (70-110)
--- NOTE | 2020-07-19 07:51 | NUR.SHIFT ---
Patient had an uneventful night, mainly slept.
[2020-07-19 08:00] VITALS: BP 119/64; BP 150/69; PULSE 77; PULSE 79; RESP 16; RESP 18; TEMP 36.4; TEMP 36.9; O2SAT 95
[2020-07-19 08:38] VITALS: PULSE 79; RESP 18; O2SAT 99
[2020-07-19 09:00] LABS: Alanine Aminotransferase 28 U/L (0-33); Albumin Level 3.6 g/dL (3.5-5.2); Alkaline Phosphatase 78 IU/L (35-105); Aspartate Amino Transferase 28 U/L (0-32); Blood Urea Nitrogen 12 mg/dL (8-23); Calcium 9.1 mg/dL (8.5-10.5); Carbon Dioxide 26 mmol/L (22-29); Chloride 99 mmol/L (98-107); Globulin 3.9 g/dL (1.3-4.6); Glomerular Filtration Rate 122.3 mL/min (90-130); Glucose 245 mg/dL (65-115); Osmolality Calculated 290 mOsm/kg (285-295); Sodium 136 mmol/L (136-145); Total Bilirubin 0.3 mg/dL (0.15-1.2); Total Protein 7.5 g/dL (6.6-8.7)
[2020-07-19 09:13] LABS: Anion Gap 14.2 (5-19); Potassium 3.2 mmol/L (3.5-5.1)
[2020-07-19] MEDS: lisinopril 5 mg Tablet 10 MG PO (11:20)
[2020-07-19] MEDS: hyDRALAzine 25 mg Tablet PO (11:20)
[2020-07-19] MEDS: carvedilol 25 mg Tablet PO (11:20)
[2020-07-19 11:43] LABS: Glucose Point of Care 207 mg/dL (70-110)
[2020-07-19 12:00] VITALS: BP 119/64; PULSE 79; RESP 18; TEMP 36.9; O2SAT 99
[2020-07-19 14:23] VITALS: BP 119/64; PULSE 79; RESP 18; TEMP 36.9; O2SAT 99
[2020-07-19 16:03] LABS: Glucose Point of Care 165 mg/dL (70-110)
--- NOTE | 2020-07-19 18:23 | P.DS_ITS ---
Discharge Providers Date of Admission: 07/13/20 12:32 Date of Discharge: July 30, 2020 Attending Provider at Admission: Ilan Catalan MD Attending Provider at Discharge: Alisha Caal MD Primary Care Provider: Thony Chung MD Diagnoses at Discharge Discharge Diagnosis (1) Headache: Status: Resolved Qualifiers: Headache type: unspecified (2) Fever: Status: Resolved (3) Leukocytosis: Status: Resolved (4) Diabetes mellitus: Status: Inactive (5) Hypertension: Status: Inactive (6) Acute sinusitis: Status: Acute Reason for Visit Reason for Visit: severe headache 39773 R51.9 Hospital Course Hospital Course Marshall Bradford is a 70 year old female who [facility] c/o headache, fever, thought to be related to sinusitis for which she received Augmentin and then later it appears doxycycline by her PCP. Headache and fever continued to persist and she returned to the ER on 07/13 with fever, headache, neck pain , vomiting and concern for meningismus. She received empiric rx with ceftriaxone, vancomycin and acyclovir and underwent LP which was not remarkabale for meningitis. Ct head, MRI brain and MRV were without signs of acute pathology. Evidence of sinusitis was noted. though no clear explanation for her symptoms was found, most likely possibilities include acute bacterial sinusitis, improved with empiric antibiotics vs viral meningitis which resolved. Headache could additionally have been contributed by uncontrolled blood pressure, which was resolved after titration of her BP medications and normalization of BP. She feels much imrpoved at the time of discharge Physical Exam Narrative: EXAM NARRATIVE: GEN: Awake, alert and oriented, no acute distress CVS: S1S2 N RS: CTA B/L Abd: Soft, nt/nd , bs+ COMMERCIAL REAL ESTATE AGENT: no focal neuro deficits Discharge Data Data Completed and Pending: Completed Studies During Hospitalization Category Date Time Status CT head wo con* [id number] Urgent Cat Scan 07/13/20 05:[address] temporal bone wo con* [id number] Rout ine Cat Scan 07/15/20 16:48 Completed XR chest 1V jarod ble [id number] Stat Exams 07/13/20 06:58 Completed MR angio head wo con [id number] Routine MRI 07/18/20 14:30 Completed MR head wo con* [id number] Routine MRI 07/18/20 14:30 [place] [id number] Routine MRI 07/18/20 14:30 Completed CV carotid duplex BI* [id number] Routine Ultrasound 07/15/20 19:32 Completed Pending at discharge Category Date Time Status NISHA Screen w/ Ref dustin Routine Lab 07/15/20 08:45 Results Viral Culture Bod y Flds,Tissue Rout ine Lab 07/13/20 11:00 Received Vitals: Last Vital Signs Temp 98.5 F 07/19/20 14:23 Pulse 79 07/19/20 14:23 Resp 18 07/19/20 14:23 BP 119/64 07/19/20 14:23 Pulse Ox 99 07/19/20 14:23 Discharge Plan Discharge Patient Disposition: Home Condition: Stable Prescriptions: New acetaminophen 325 mg Tablet 650 mg PO Q6H PRN (Reason: Mild/Mod Pain Or Temp >/= 101) Qty: 0 RF: 0 hydralazine 25 mg Tablet 25 mg PO TID 30 Days Qty: 90 RF: 0 lisinopril 5 mg Tablet 10 mg PO DAILY 30 Days Qty: 30 RF: 0 Continued carvedilol [Coreg] 25 mg tablet 25 mg PO BID RF: 0 glimepiride [Amaryl] 2 mg tablet 3 mg PO BID RF: 0 fluticasone propion-salmeterol [Advair Diskus] 250-50 mcg/dose blister with device 1 inh INHALATION BID RF: 0 hydralazine 10 mg Tablet 10 mg PO BID RF: 0 fluticasone propionate [Flonase Allergy Relief] 50 mcg/actuation spray,suspension 1 spray intranasal BID Qty: 9.9 RF: 0 Discontinued prednisone 20 mg tablet 20 mg PO BID 5 Days Qty: 10 RF: 0 doxycycline hyclate 100 mg capsule 100 mg PO BID 10 Days Qty: 20 RF: 0 Discharge Orders: Discharge Order (Routine); Ordered 07/19/20 Ordered By: Alisha Caal Referrals: Thony Chung MD [Primary Care Provider] - 07/26/20 11:20 am Discharge Diet: Usual diet Discharge Activity: Increase activity as tolerated Patient Instructions: Lisinopril (By mouth), Amoxicillin/Clavulanate Potassium (By mouth), Hydralazine (By mouth), Headache Discharge Attestations Time Spent in Discharge Care*: greater than 30 min Quality Metrics Clinical Quality Measures During this hospital stay, did patient experience: None Coding Level of Care Code Acute Auto Customize Painter for Chg Fwd Diagnoses Headache R51.9 Headache type: unspecified Fever R50.9 Leukocytosis D72.829 Diabetes mellitus E11.9 Hypertension I10 Acute sinusitis J01.90
[2020-07-20 10:22] LABS: ANCA Interp Negative (Negative)
[2020-07-29 15:33] LABS: St. Louis Enceph.Interp CSF ANTIBODY DETECTED; St. Louis Enceph.Virus IGM CSF <1:1
== END 2020-07-19 14:24 | disposition home or self-care (01) | DRG 872 ==
LOC: ER 11:34 → MEDSURG 15:14
PROVIDERS: Internal Medicine; Admitting Provider Internal Medicine; Emergency Provider Family Medicine; PCP Family Medicine; Visit Provider Student in an Organized Health Care Education/Training Program
DX: A41.9 Sepsis, unspecified organism (principal); A87.9 Viral meningitis, unspecified; J45.909 Unspecified asthma, uncomplicated; E11.9 Type 2 diabetes mellitus without complications; I10 Essential (primary) hypertension; G47.33 Obstructive sleep apnea (adult) (pediatric); M19.90 Unspecified osteoarthritis, unspecified site; J01.80 Other acute sinusitis
CPT/HCPCS: 12345; 36415; 36416; 62270; 70450; 70480; 70544; 70551; 71045; 80053; 80202; 80500; 81001; 82945; 82962; 83516; 83735; 84145; 84157; 84443; 85025; 85651; 86038; 86140; 86403; 86653; 86695; 86696; 87040; 87070; 87075; 87205; 87426; 87556; 87635; 87804; 89050; 93880; 94640; 96372; 99284; J0133; J0290; J0696; J1200; J1644; J1720; J1815; J1885; J2250; J2765; J3370; J3475; J7030; J7050

== ENCOUNTER → 2021-02-17 08:30 | Outpatient (BNVA) | payer OTHER, MEDICARE, SELFPAY | PROVIDERS: PCP Family Medicine; Visit Provider Otolaryngology | DX: Z11.52 Encounter for screening for COVID-19 (principal) | CPT/HCPCS: 87635 ==

== ENCOUNTER → 2021-03-02 15:44 | Outpatient (BNVA) | payer OTHER, MEDICARE, SELFPAY | PROVIDERS: PCP Family Medicine; Visit Provider Otolaryngology | DX: Z11.52 Encounter for screening for COVID-19 (principal) | CPT/HCPCS: 87635 ==

== ENCOUNTER 2021-03-08 05:16 | Day surgery (SDC) | payer OTHER, MEDICARE, SELFPAY ==
[2021-03-07 10:08] VITALS: BMI 30.2
[2021-03-08 06:08] VITALS: BP 167/90; PULSE 88; RESP 20; TEMP 36.9; O2SAT 95
--- NOTE | 2021-03-08 06:28 | W.PM.OPSUD ---
Surgery/Procedure H&P Update DATE OF PROCEDURE: March 08, 2021 DATE H&P PERFORMED: 02/03/21 H&P UPDATE INFORMATION: I have reviewed H&P completed within last 30 days (H&P done 02-03-21 is reviewed and no changes are evident or needed.), I have examined patient prior to procedure and No changes to prior documentation CHANGES TO PREVIOUS DOCUMENTATION: No changes required from H&P done 02-03-21. Patient surgery has been rescheduled and delayed past 30 days. No changes in history and physical exam. No changes necessary as it is exactly the same. 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
[2021-03-08 06:30] LABS: Glucose Point of Care 219 mg/dL (70-110)
--- NOTE | 2021-03-08 06:31 | ANES.PREANE2 ---
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 Proposed Procedure: Operation Date: 03/08/21 07:00 Proposed Procedures p EXCISION RIGHT BUCCAL MUCOSAL LESION 21897 k13.70 k13.29 k13.21(Right) - Noe Dos Santos MD Familial anesthetic complications: None Was Beta Evie taken within 24 hours: N/A Was Clonidine taken within 24 hours: N/A Last intake: Intake Last Liquid Date 03/07/21 Last Liquid Time 20:00 Last Solid Date 03/07/21 Last Solid Time 18:00 Social: Social History: No alcohol and No tobacco Exam: Pre-Anes Outpt Exam: alert, oriented x 3, clear to auscultation bilaterally and regular rate & rhythm Airway: Cervical ROM: WNL MP: 3 Dentition: False Pulmonary: Pulmonary: Sleep apnea CV/HEM: CV/HEM: HTN Metabolic: Metabolic: DM Anesthetic Plan: ASA status: 3 Anesthesia: General Other: ETT, no LMA Risk of > 500 ml blood loss (7ml/kg in children): No PFSH Anesthesia PFSH: Medical History Asthma Diabetes mellitus Hypertension DOTTIE (obstructive sleep apnea) Osteoarthritis Surgical History S/P cataract extraction S/P hysterectomy S/P knee surgery S/P oophorectomy Family History Father , from [place] age 45 Myocardial infarction Mother Cancer Other Diabetes Hypertension Social History Smoking and tobacco status: never smoked Alcohol intake: never Data Anesthesia Other Labs: Laboratory Results - last 48 hr 03/08/21 06:25 POC Glucose 219 H Cardiac Studies: No Data to Display
[2021-03-08] MEDS: sodium chloride 0.9% 1,000 ML 30 ML IV (06:37)
--- NOTE | 2021-03-08 07:35 | PM.OP ---
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 Post-op diagnosis: same Post-op Findings: Samantha White pattern to buccal membrane from near oral commissure to the molar region of the alveolar ridge. Procedure Done: Incisional biopsy of right buccal membrane. Implants: No implants. Specimens removed/disposition: Right buccal membrane specimen sent to pathology for permanent section. Surgeon: Noe Dos Santos Anesthesia: General and Local Estimated blood loss (mL): 20 Complications: No complications encountered. Findings: 3.5 cm x 1 cm area of white firm lacelike pattern with some scarring consistent with lichen planus or leukoplakia with some mild erythroplakia. Condition: stable Disposition: PACU Brief History: 71-year-old female patient with longstanding history of a white lesion lacelike in appearance with some scarring and surrounding erythema. This has failed to come under control with conservative measures. Therefore she is brought to the operating room for biopsy. The procedure its risks and complications have been explained. These include bleeding infection numbness scarring swelling bruising recurrence need for additional treatment and more serious risk such as heart attack stroke or not surviving the surgery. With these things understood informed consent was granted. It was also witnessed. Procedure: Description of procedure: The patient was placed on the operating table in the supine position. Adequate general endotracheal tube anesthesia was obtained. She was given Ancef IV for prophylaxis. The table was rotated 90 degrees. The eyes were taped shut and head drape was applied in usual fashion. A timeout was accomplished identifying the patient date of plan procedure allergies fire risk and medications given. With all in agreement the procedure continued. A mouthgag was placed under her upper gingiva and a tongue blade on the tongue. This was opened and suspended from a rolled towel placed on her chest. Examination of the mouth tongue and membranes revealed the only area of concern being the right buccal membrane area. It would be in the bite line region if she had teeth which she does not. The mid to posterior portion has the greatest changes with lacelike white pattern which is slightly firm to touch along with some scarring in that area. There had previously been more erythema. That has reduced somewhat. This extends to near the oral commissure on the patient's right side. It measures about 3.5 cm x 1 cm. The area was infiltrated with a total of 7 mL of 2% Xylocaine with 1-100,000 epinephrine. After several minutes passed a 15 blade was used to create a fusiform incision pattern incorporating the bulk of the lesion. This was taken down into the subcutaneous or submucosal fat layer and resected. It was sent to the pathologist for permanent section. The bleeding was controlled with bipolar cautery and pressure. Then closure with running 3-0 Vicryl and some interrupted 3-0 Vicryl simple sutures was accomplished to close the defect. All bleeding was controlled. The area was irrigated with saline. It was suctioned clean. No bleeding was evident. The mouthgag was removed. The head was returned to the upright position. Head drape and tape were removed. The throat was suctioned again with no sign of bleeding. The patient was then returned to anesthesia for wake-up and extubation. She tolerated the procedure well had an estimated blood loss of 20 mL or less and arrived in recovery in stable condition.
[2021-03-08 07:47] VITALS: BP 166/84; PULSE 89; RESP 20; TEMP 36.6; O2SAT 100
[2021-03-08 07:50] VITALS: BP 154/70; PULSE 86; RESP 18; O2SAT 100
[2021-03-08 07:55] VITALS: BP 152/70; PULSE 87; RESP 19; O2SAT 100
--- NOTE | 2021-03-08 07:55 | SUR.PHASEI ---
PT AWAKES EASILY TO VOICE ORAL AIRWAY OUT PT SX WITH YANKER SMALL AMT PINK SECRETIONS, VSS
--- NOTE | 2021-03-08 07:57 | SUR.PHASEI ---
PT NOW ON RA PT AWAKES TO VOICE DENIES PAIN VSS. RESP EVEN AND UNLABORED.
[2021-03-08 08:00] VITALS: BP 152/70; PULSE 90; RESP 16; TEMP 36.5; O2SAT 97
[2021-03-08 08:09] VITALS: BP 144/64; PULSE 79; RESP 16; TEMP 36.5; O2SAT 98
--- NOTE | 2021-03-08 13:41 | ANE.PACU2 ---
Inpatient post-anesthesia follow up: Airway intact: Yes Vital signs: Temperature 97.7 F Pulse Rate 79 Respiratory Rate 16 Blood Pressure 144/64 Pulse Oximetry 98 Oxygen Delivery Me thod Room Air Oxygen Flow Rate 8 Fraction of Inspir ed Oxygen Hydration adequate: Yes Nausea and vomiting: No Pain level: 2 Mental status: Baseline
--- NOTE | 2021-03-09 14:59 | PM.HP ---
Providers/Chief Complaint Admitting Physician: Noe Dos Santos MD Primary Care Provider: Thony Chung MD Chief Complaint: EXCISION RIGHT BUCCAL MUCOSAL LESION 60431 History of Present Illness Marshall Bradford is a 71 year old female who has had soreness in the right side of her mouth constantly and seeming to worsen over the past year. She says it does not bleed. It galarza and stings when she eats certain foods. She does not feel like she is biting her cheek. She is a non-smoker. She does not put anything unusual in her mouth. She is not using any drugs or tobacco or chemicals. She is not having any hemoptysis or hematemesis. No aspiration problems. No hoarseness. No unexplained weight loss. She does report allergies to apples bananas pineapple and strawberry which causes swelling of the lip tongue and throat. Review of Systems General: Reports: 10 or more systems reviewed and unremarkable except in HPI and below ENMT: Reports: mouth pain and oral sores Medications/Allergies Home Medications Medication Instructions Recorded Confirmed Last Taken Type fluticasone 250 mcg-salmeterol 50 1 inh INHALATION BID 11/30/19 03/07/21 07/13/20 History mcg/dose blistr powdr for inhalation glimepiride 2 mg tablet 3 mg PO BID 11/30/19 03/08/21 03/07/21 History acetaminophen 650 mg PO Q6H PRN #0 tab 07/19/20 03/07/21 Unknown Rx albuterol sulfate 90 mcg/actuation 1 inh INHALATION QID 02/03/21 03/07/21 Unknown History aerosol inhaler spironolactone 50 mg tablet 50 mg PO DAILY 02/03/21 03/08/21 03/08/21 History tramadol 50 mg PO Q6H PRN #30 tab 03/08/21 Unknown Rx Allergies Allergy/AdvReac Type Severity Reaction Status Date / Time Iodinated Contrast Media Allergy Unknown Unknown Verified 03/07/21 10:05 apple Allergy ALGY-Swell Verified 03/07/21 10:05 Lip/Tongue/Throat banana Allergy ALGY-Swell Verified 03/07/21 10:05 Lip/Tongue/Throat pineapple Allergy ALGY-Swell Verified 03/07/21 10:05 Lip/Tongue/Throat strawberry Allergy ALGY-Swell Verified 03/07/21 10:05 Lip/Tongue/Throat PFSH Acute PFSH: Medical History Asthma Diabetes mellitus Hypertension DOTTIE (obstructive sleep apnea) Osteoarthritis Surgical History S/P cataract extraction S/P hysterectomy S/P knee surgery S/P oophorectomy Family History Father , from [place] age 45 Myocardial infarction Mother Cancer Other Diabetes Hypertension Social History Smoking and tobacco status: never smoked Alcohol intake: never Vitals/I&O/Wt Last Vital Signs Temp 97.7 F 03/08/21 08:09 Pulse 79 03/08/21 08:09 Resp 16 03/08/21 08:09 BP 144/64 03/08/21 08:09 Pulse Ox 98 03/08/21 08:09 Physical Exam Const: COMMON NORMALS: no acute distress, average body habitus, patient oriented x3, no limitations, healthy appearing, alert and well nourished GENERAL APPEARANCE: cooperative, comfortable, well kempt and well developed ORIENTATION/CONSCIOUSNESS: Yes awake HENMT: COMMON NORMALS: normocephalic, atraumatic, hearing grossly normal bilaterally, external ears normal, EAC's normal, TM's normal bilaterally, Normal external nose present, Normal nasal mucous membranes and turbinates present, oropharynx normal, dentition normal and gingiva normal HEAD & SCALP: normal to inspection and normocephalic FACE & SINUS: normal facial exam, sinuses nontender and face symmetric NOSE: Normal external nose present, Normal nares present, No nasal polyps present, Normal nasal mucous membranes and turbinates present and Normal septum present EXTERNAL EAR: Yes external ears normal and Yes external ear abnormal EXTERNAL AUDITORY CANAL: EAC's normal TYMPANIC MEMBRANE: TM's normal bilaterally MOUTH: lip normal, tongue normal, Normal salivary glands and ducts present and moist mucous membranes abnormal (Lichen planus-like changes to the buccal membrane) TEETH & GINGIVA: Yes dentures (Upper and lower dentures) THROAT: posterior oropharynx normal, tonsils normal and uvula midline Eye: COMMON NORMALS: Equal, round and reactive pupils present, EOMs intact bilaterally, conjunctivae normal and no scleral icterus Neck/C-Spine: COMMON NORMALS: full ROM, no lymphadenopathy, supple, no meningeal signs, no JVD and Thyroid normal Lymph: LYMPHATIC: no lymphadenopathy noted Resp: COMMON NORMALS: normal respiratory effort, No retractions, No use of accessory muscles and clear to auscultation bilaterally Cardio: COMMON NORMALS: regular rate, regular rhythm, No gallops present (Cardio), No murmurs present (Cardio) and No rub (Cardio) GI: COMMON NORMALS: Normal to inspection, nondistended, normoactive bowel sounds present and Soft to palpation Extremity: COMMON NORMALS: normal to inspection and full ROM Neuro: COMMON NORMALS: patient oriented x3 Psych: COMMON NORMALS: mental status grossly normal, Normal thought process present, cooperative, normal affect, speech normal, activity/motor behavior normal, denies hallucinations, denies homicidal ideation and denies suicidal ideation APPEARANCE: Yes grossly normal and Yes well kempt ATTITUDE: Yes calm and Yes engaged Skin: COMMON NORMALS: no rashes or lesions noted and no wounds A&P Additional A&P Information Assessment: Right buccal membrane leukoplakic changes with erythema possibly lichen planus. Plan: Patient to undergo outpatient surgery under general and local anesthesia to remove a segment of the right buccal membrane lesion for diagnostic purposes. Direct closure as expected. Patient will follow up 1 week postop in the office. Attestations Medical Necessity Statement*: Patient is not going to be an inpatient. She is an outpatient surgical procedure patient. Time Spent in Patient Care: Greater than 35 minutes Critical Care Time: Critical Care Time (min): 0 Coding Level of Care Code Established Pt Acute Environmental Assistant for Chg Fwd Patient Type Established History Problem Focused Exam Comprehensive Medical Decision Making Low Complexity
== END 2021-03-08 08:35 | disposition home or self-care (01) ==
PROVIDERS: PCP Family Medicine; Visit Provider Otolaryngology
PROC: (CPT 40810; principal; 2021-03-08 07:00)
DX: K13.29 Other disturbances of oral epithelium, including tongue (principal); K13.21 Leukoplakia of oral mucosa, including tongue; J45.909 Unspecified asthma, uncomplicated; E11.9 Type 2 diabetes mellitus without complications; I10 Essential (primary) hypertension; G47.33 Obstructive sleep apnea (adult) (pediatric); M19.90 Unspecified osteoarthritis, unspecified site
CPT/HCPCS: 40810; 36416; 82962; 88307; J0330; J0690; J1100; J2405; J2704; J3010; J7030

== ENCOUNTER 2022-05-02 08:50 | Outpatient (CLI) | payer MEDICARE, OTHER, SELFPAY ==
--- NOTE | 2022-05-02 | CT_ITS ---
WS: [id number] CT NECK TECHNIQUE: Noncontrast CT of the neck with coronal and sagittal reformatted images. CLINICAL INFORMATION: DYSPHAGIA COMPARISON: None. DLP: 243.[address] scans at [facility] use at least one of these dose optimization techniques: automated e xposure control; mA and/or kV adjustment per patient size (includes targeted exams where dose is matc hed to clinical indication); or iterative reconstruction. FINDINGS: Dental artifact degrades some images at the skull base. Parotid glands are normal. Normal submandibul ar glands. Tongue base appears normal. Normal posterior nasopharynx. Normal parapharyngeal fat. No ev idence of supraglottic or glottic mass. Subglottic airway is normal. LEFT anterior lateral projecting diverticulum at the C6 level also seen on the barium swallow measuring 10 x 12 mm. This projects ant erolaterally from the upper thoracic esophagus. This is air-filled on this examination. Lung apices are well aerated. Partially visualized intracranial contents are normal. Mastoid air cell s well aerated. Paranasal sinuses are well aerated. Trace mucosal thickening in the ethmoid air cells and maxillary sinuses. Normal submandibular glands. No cervical lymphadenopathy. Mild spondylitic ch anges cervical spine. CT/CT neck wo con [id number] IMPRESSION: 1. Anterior lateral projecting [place]-Yaritza pharyngoesophageal diverticulu m measuring 10 x 12 mm also seen on the recent barium swallow. This projects LE FT anterolaterally from the upper thoracic esophagus. 2. No cervical lymphadenopathy. 3. Otherwise no evidence of supraglottic or glottic mass. Subglottic airway is patent. 4. No other remarkable findings.
--- NOTE | 2022-05-02 09:06 | FL_ITS ---
WS: [id number] Barium swallow and esophagram, 05/02/2022 Clinical Data: OTHER DYSPHAGIA Comparison: None. Fluoroscopy time: 0min [id number] # of spot films: 8 Findings: The patient swallowed the thick and thin barium, and it flowed through the hypopharynx without hesita tion. No stricture, mass, polyp or erosion was seen. There is a left lateral diverticulum, a Trilby Yaritza diverticulum. The barium entered the esophagus and there was slight dysmotility throughout. No hiatal hernia, refl ux, stricture, polyp, mass, erosion or ulcer was noted. FL/FL barium swallow [id number] Impression: 1. 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 2. Esophageal dysmotility but no reflux, erosion, hiatal hernia, or reflux is s een.
== END 2022-05-02 08:51 | disposition home or self-care (01) ==
LOC: RAD 08:51
PROVIDERS: PCP Family Medicine; Visit Provider Specialist
DX: K22.4 Dyskinesia of esophagus (principal); K22.5 Diverticulum of esophagus, acquired; J37.0 Chronic laryngitis
CPT/HCPCS: 70490; 74220

== ENCOUNTER 2022-08-09 11:06 | Outpatient (CLI) | payer MEDICARE, OTHER, SELFPAY ==
--- NOTE | 2022-08-09 | ECG_ITS ---
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 Interpretive Statements NAME OF STUDY: TREADMILL STRESS TEST INDICATION: [abnormal ekg, ] EXERCISE DATA: The patient was exercised by Loy protocol. Baseline heart rate was 96 beats per minute. Baseline blood pressure was 140/87 millimeters of mercury. Target heart rate was 126 beats per minute. Maximum heart rate achieved was 156, which was 120% of the target heart rate. Maximum blood pressure was 178/98 millimeters of mercury. Total exercise time was 4 minutes 21 seconds. Maximum METs achieved was 7. The reason for ending the test was maximal effort was achieved. The patient complained of shortness of breath during the stress test, which then resolved at the end of the test. ELECTROCARDIOGRAM: BASELINE: Showed sinus rhythm, normal axis, no significant ST-T changes at the baseline noted. [] EXERCISE: At the peak exercise level, [] No significant ST-T changes suggestive of ischemia noted. [] RECOVERY: During the recovery period, heart rate dropped appropriately. No significant ST-T changes in the recovery suggestive of ischemia noted. [] CONCLUSION: 1. Exercise capacity fair 2. Heart rate response was appropriate 3. Blood pressure response was appropriate 4. Symptoms not suggestive of ischemia. 5. Stress test is negative and has no evidence of ischemia. Electronically Signed On 08-19-2022 20:36:02 RECONCILIATION SPECIALIST by Kishan Liz M.D. [id number]
[2022-08-09 13:39] VITALS: BMI 29.2
[2022-08-09 14:04] VITALS: BP 132/82; PULSE 104
== END 2022-08-09 11:07 | disposition home or self-care (01) ==
PROVIDERS: PCP Electrodiagnostic Medicine; Visit Provider Electrodiagnostic Medicine
DX: R94.31 Abnormal electrocardiogram [ECG] [EKG] (principal)
CPT/HCPCS: 93017

== ENCOUNTER 2022-08-29 08:34 | Outpatient (CLI) | payer MEDICARE, OTHER, SELFPAY ==
--- NOTE | 2022-08-29 08:48 | MM_ITS ---
WS: [id number] SCREENING DIGITAL BREAST TOMOSYNTHESIS MAMMOGRAM WITH CAD HISTORY: SCREENING COMPARISON: 12/24/2018 and 06/28/2016 Bilateral CC and MLO with tomosynthesis and synthetic mammography submitted. Computer aided detection analyzed. Breast composition: There are scattered areas of fibroglandular density. There is a new asymmetry in the posterior RIGHT breast measuring 6 x 5 mm. Margins are very slightly lobulated on the MLO project ion. This nodule needs further evaluation. Stable calcifications and asymmetries in the LEFT breast. MM/[place] [id number] IMPRESSION: BI-RADS: 0-Incomplete: Need additional imaging evaluation FOLLOW UP: Need Additional Imaging RIGHT breast: Spot compression views (CC and MLO). True ML. Ultrasound to follo w if abnormality persists.
== END 2022-08-29 08:35 | disposition home or self-care (01) ==
PROVIDERS: PCP Electrodiagnostic Medicine; Visit Provider Electrodiagnostic Medicine
DX: Z12.31 Encounter for screening mammogram for malignant neoplasm of breast (principal)
CPT/HCPCS: 77063; 77067

== ENCOUNTER 2022-09-26 13:07 | Outpatient (CLI) | payer MEDICARE, OTHER, SELFPAY ==
--- NOTE | 2022-09-26 13:24 | MM_ITS ---
WS: [id number] ADDITIONAL VIEWS RIGHT MAMMOGRAM WITH DIGITAL BREAST TOMOSYNTHESIS. RIGHT BREAST ULTRASOUND HISTORY: ABNORMAL MAMMO COMPARISON: 08/29/2022 and 12/24/2018 RIGHT MAMMOGRAM: Spot compression views and true ML with digital breast tomosynthesis and SM. Ill-defined mass persists in the posterior breast on additional views. Mass is just medial and above the nipple line at a posterior depth. Mass measures 6.8 mm in diameter. Mass should be located near t he 2-3 o'clock axis. RIGHT BREAST ULTRASOUND 2-D and color Doppler imaging submitted. No ultrasound abnormality is noted within the medial RIGHT breast near 2-3 o'clock. MM/[place] [id number] IMPRESSION: BI-RADS: 3-Probably Benign FOLLOW UP: 6 Month Follow-up 1. Very vague RIGHT breast mass measuring 6.8 mm near 2:00. No corresponding u ltrasound finding. This may be normal fibroglandular breast tissue. Recommend 6 month follow-up. Follow-up should consist of a diagnostic RIGHT mammogram and possible ultrasound.
== END 2022-09-26 13:08 | disposition home or self-care (01) ==
PROVIDERS: PCP Electrodiagnostic Medicine; Visit Provider Electrodiagnostic Medicine
DX: R92.8 Other abnormal and inconclusive findings on diagnostic imaging of breast (principal); N63.12 Unspecified lump in the right breast, upper inner quadrant
CPT/HCPCS: 76642; 77061; G0279

== ENCOUNTER 2023-04-02 14:29 | Outpatient (CLI) | payer MEDICARE, OTHER, SELFPAY ==
--- NOTE | 2023-04-02 14:47 | MM_ITS ---
WS: [id number] ADDITIONAL VIEWS RIGHT MAMMOGRAM WITH DIGITAL BREAST TOMOSYNTHESIS. RIGHT BREAST ULTRASOUND HISTORY: 6[facility] COMPARISON: 09/26/2022, 08/29/2022 RIGHT MAMMOGRAM: Spot compression views and true ML with digital breast tomosynthesis and SM. The asymmetry measuring 6 mm in the posterior RIGHT breast near 12-1 o'clock persists. Similar in siz e as compared to the prior examination. Ultrasound to follow. RIGHT BREAST ULTRASOUND 2-D and color Doppler imaging submitted. Ultrasound is directed to the posterior RIGHT breast near 12-1 o'clock. No abnormality is identified. IMPRESSION: MM/[place] [id number] BI-RADS: 3-Probably Benign FOLLOW UP: 6 Month Follow-up Patient to return in 6 months for bilateral annual mammogram. The asymmetric de nsity seen in the RIGHT breast can be reevaluated at that time.
== END 2023-04-02 14:30 | disposition home or self-care (01) ==
PROVIDERS: PCP Electrodiagnostic Medicine; Visit Provider Electrodiagnostic Medicine
DX: N64.89 Other specified disorders of breast (principal); R92.8 Other abnormal and inconclusive findings on diagnostic imaging of breast
CPT/HCPCS: 76642; 77061; G0279

== ENCOUNTER → 2023-04-18 08:27 | Outpatient (BNVA) | payer MEDICARE, OTHER, SELFPAY | PROVIDERS: PCP Family Medicine; Visit Provider Family Medicine | DX: I10 Essential (primary) hypertension (principal); E11.9 Type 2 diabetes mellitus without complications; R10.9 Unspecified abdominal pain | CPT/HCPCS: 80053; 80061; 83036; 85025; 86140 ==

== ENCOUNTER 2023-08-13 13:31 | Outpatient (CLI) | payer OTHER, SELFPAY ==
--- NOTE | 2023-08-13 13:40 | XR_ITS ---
WS: [email or web address] XR knee RT 3V* [id number] REASON FOR EXAM: fall on knee FINDINGS: Deformity of the medial tibial plateau felt to represent acute tibial plateau fracture with depressio n. Subtle deformity of the posterior lateral tibial plateau which may also represent fracture. Patella intact. IMPRESSION: Suspect bilateral tibial plateau fractures. CT as clinically warranted to fully define abnormality fo r therapy decisions.
--- NOTE | 2023-08-13 13:40 | XR_ITS ---
WS: [email or web address] XR hip RT 2-3V wo/w pel* [id number] REASON FOR EXAM: right hip fall FINDINGS: No fracture of the femoral head or neck or proximal femoral shaft. Deformity of the superior and inferior pubic ramus proximal to the pubic symphysis which appears to r epresent old healed fracture. Mild narrowing of the joint space with mild to moderate subchondral sclerosis and osteophytosis of th e acetabulum. No soft tissue abnormality. IMPRESSION: No acute hip fracture. Presumed old healed fracture of the superior and inferior pubic ramus.
== END 2023-08-13 13:32 | disposition home or self-care (01) ==
LOC: RAD 13:32
PROVIDERS: PCP Family Medicine; Visit Provider Nurse Practitioner Family
DX: M25.551 Pain in right hip (principal); M25.561 Pain in right knee; R93.6 Abnormal findings on diagnostic imaging of limbs; W19.XXXA Unspecified fall, initial encounter
CPT/HCPCS: 73502; 73562

== ENCOUNTER 2023-08-28 14:37 | Outpatient (CLI) | payer OTHER, SELFPAY ==
--- NOTE | 2023-08-28 15:30 | CT_ITS ---
WS: [email or web address] NONCONTRAST CT RIGHT KNEE TECHNIQUE: Noncontrast CT RIGHT knee with coronal and sagittal reformatted images. CLINICAL INFORMATION: M25.561 - Pain in right knee COMPARISON: None. DLP: 471.[address] scans at [facility] use at least one of these dose optimization techniques: automated e xposure control; mA and/or kV adjustment per patient size (includes targeted exams where dose is matc hed to clinical indication); or iterative reconstruction. FINDINGS: Moderate tricompartment arthritis worse in the medial joint compartment. Hypertrophic change along th e joint line. No significant joint effusion. Slight sclerosis medial lateral tibial plateau. No visua lized acute fractures. Hypertrophic patella. No visualized acute patellar fractures. Mild prepatellar soft tissue edema. IMPRESSION: 1. No acute fractures 2. Moderate tricompartment arthritis worse in the medial joint compartment. 3. Hypertrophic patella. 4. No significant joint effusion.
== END 2023-08-28 14:38 | disposition home or self-care (01) ==
LOC: RAD 14:37
PROVIDERS: PCP Family Medicine; Visit Provider Nurse Practitioner Family
DX: M17.11 Unilateral primary osteoarthritis, right knee (principal); M25.561 Pain in right knee; W00.0XXA Fall on same level due to ice and snow, initial encounter; Y93.89 Activity, other specified; Y92.69 Other specified industrial and construction area as the place of occurrence of the external cause
CPT/HCPCS: 73700

== ENCOUNTER → 2023-09-17 13:26 | Outpatient (BNVA) | payer MEDICARE, OTHER, SELFPAY | PROVIDERS: PCP Family Medicine; Visit Provider Surgery | DX: R13.10 Dysphagia, unspecified (principal); L60.0 Ingrowing nail; E11.42 Type 2 diabetes mellitus with diabetic polyneuropathy; G62.9 Polyneuropathy, unspecified | CPT/HCPCS: 11750; 99203; A6219 ==

== ENCOUNTER → 2023-10-01 09:24 | Outpatient (BNVA) | payer MEDICARE, OTHER, SELFPAY | PROVIDERS: PCP Family Medicine; Visit Provider Podiatrist Foot & Ankle Surgery | DX: L60.0 Ingrowing nail (principal); G62.9 Polyneuropathy, unspecified; E11.42 Type 2 diabetes mellitus with diabetic polyneuropathy | CPT/HCPCS: 99213 ==

== ENCOUNTER 2023-10-09 08:34 | Outpatient (CLI) | payer MEDICARE, OTHER, SELFPAY ==
--- NOTE | 2023-10-09 10:00 | FL_ITS ---
WS: [email or web address] Modified barium swallow, 10/09/2023 Clinical Data: Food is stuck in upper esophagus in the last 4 months. Comparison: None. Fluoroscopy time: 1min 51.423321ttj # of spot films: Findings: The patient showed minimal premature spillage and minimal oral residue with solids. The residue did c lear with swallowing. There is a trace of penetration with thin liquids but no aspiration. The barium passed tablet passed normally from the oral cavity into the stomach. Impression: 1. Minimal oral residue with solids which cleared with swallowing. 2. Trace penetration with thin liquids. 3. Minimal premature spillage. 4. Normal propulsion of barium tablet.
== END 2023-10-09 08:35 | disposition home or self-care (01) ==
LOC: RAD 08:34
PROVIDERS: PCP Family Medicine; Visit Provider Surgery
DX: R13.10 Dysphagia, unspecified (principal)
CPT/HCPCS: 74230; 92611

== ENCOUNTER → 2023-10-14 15:52 | Outpatient (BNVA) | payer MEDICARE, OTHER, SELFPAY | PROVIDERS: PCP Family Medicine; Visit Provider Family Medicine | DX: I10 Essential (primary) hypertension (principal); E11.9 Type 2 diabetes mellitus without complications | CPT/HCPCS: 80053; 83036 ==

== ENCOUNTER 2023-10-15 10:04 | Outpatient (CLI) | payer MEDICARE, OTHER, SELFPAY ==
--- NOTE | 2023-10-15 10:15 | MM_ITS ---
WS: [id number] DIAGNOSTIC BILATERAL DIGITAL BREAST TOMOSYNTHESIS MAMMOGRAPHY WITH CAD RIGHT breast ultrasound, limited HISTORY: 6[facility] ABNORMAL MAMMO COMPARISON: 09/26/2022, 04/02/2023, 08/29/2022 and 12/24/2018 TECHNIQUE: Bilateral craniocaudad, mediolateral oblique, and mediolateral views are submitted with to mosynthesis and SM. Spot compression RIGHT MLO and CC. Computer aided detection utilized. Breast composition: There are scattered areas of fibroglandular density. The previously described asy mmetry measuring 6 mm in the posterior medial RIGHT breast is reidentified. This is near the 1-2 o'cl ock axis at above the nipple line. No change coordinator the most recent examinations. Benign calcifications in the LEFT breast. RIGHT breast ultrasound, limited. In the posterior RIGHT breast at 2:00 there is a benign-appearing lymph node measuring 3 x 2 x 5 mm. This does correspond in size and location of the mammographic abnormality. There is no solid or suspi cious mass. IMPRESSION: MM/[place] [id number] BI-RADS: 2-Benign FOLLOW UP: 1 Year Follow-up The mammographic abnormality is reidentified and does correspond to a benign-ap pearing lymph node in the RIGHT breast at 3:00.
== END 2023-10-15 10:05 | disposition home or self-care (01) ==
LOC: RAD 10:06
PROVIDERS: PCP Family Medicine; Visit Provider Electrodiagnostic Medicine
DX: R92.8 Other abnormal and inconclusive findings on diagnostic imaging of breast (principal); R92.30 Dense breasts, unspecified
CPT/HCPCS: 76642; 77062; G0279

== ENCOUNTER → 2023-11-11 16:29 | Outpatient (BNVA) | payer MEDICARE, OTHER, SELFPAY | PROVIDERS: PCP Family Medicine; Visit Provider Family Medicine | DX: L98.9 Disorder of the skin and subcutaneous tissue, unspecified (principal) | CPT/HCPCS: 88305 ==

== ENCOUNTER → 2023-12-03 10:08 | Outpatient (BNVA) | payer MEDICARE, OTHER, SELFPAY | PROVIDERS: PCP Family Medicine; Visit Provider Podiatrist Foot & Ankle Surgery | DX: G62.9 Polyneuropathy, unspecified; L84 Corns and callosities; E11.42 Type 2 diabetes mellitus with diabetic polyneuropathy | CPT/HCPCS: 99213 ==

== ENCOUNTER 2024-01-16 08:19 | Day surgery (SDC) | payer MEDICARE, OTHER, SELFPAY ==
[2024-01-16 08:34] VITALS: BP 144/92; PULSE 84; RESP 18; TEMP 36.6; O2SAT 98; BMI 28.3
[2024-01-16] MEDS: sodium chloride 0.9% 1,000 ML 30 ML IV (08:42)
[2024-01-16 08:46] LABS: Glucose Point of Care 224 mg/dL (70-110)
--- NOTE | 2024-01-16 08:52 | W.PM.OPSFHP ---
Same Day Surgery H&P Indication for Procedure/HPI DATE OF PROCEDURE: January 16, 2024 CHIEF COMPLAINT/INDICATIONFOR SURGICAL PROCEDURE: dysphagia PREOP DIAGNOSIS: dyphagia PLANNED PROCEDURE: Operation Date: 01/16/24 09:40 Proposed Procedures p [id number] egd w/ balloon dialation R13.10(Not Applicable) - Irwin Deal MD Medications/Allergies* Home Medications Medication Instructions Recorded Confirmed Type albuterol sulfate 90 mcg/actuation 1 inh inhalation QID PRN Shortness 02/03/21 01/14/24 History aerosol inhaler Of Breath spironolactone 50 mg tablet 50 mg PO DAILY 01/14/24 01/14/24 History Allergies/Adverse Reactions Allergy/AdvReac Type Severity Reaction Status Date / Time Iodinated Contrast Media Allergy Unknown Unknown Verified 01/14/24 13:46 apple Allergy ALGY-Swell Verified 01/14/24 13:46 Lip/Tongue/Throat banana Allergy ALGY-Swell Verified 01/14/24 13:46 Lip/Tongue/Throat pineapple Allergy ALGY-Swell Verified 01/14/24 13:46 Lip/Tongue/Throat strawberry Allergy ALGY-Swell Verified 01/14/24 13:46 Lip/Tongue/Throat Current Medications: Generic Name Dose Route Start Last Admin Trade Name Freq PRN Reason Stop Dose Admin Sodium Chloride 1,000 mls @ 30 mls/hr 01/16/24 08:30 01/16/24 08:42 Sodium Chloride 0.9% IV 30 mls/hr .Q24H GALLITO Administration Pertinent History/Comorbid Conditions* Medical History (Updated 01/14/24 @ 07:00 by Thony Chung MD) Depression Asthma Osteoarthritis DOTTIE (obstructive sleep apnea) Hypertension Diabetes mellitus Surgical History (Updated 07/13/20 @ 12:03 by Ilan Catalan MD) S/P oophorectomy S/P knee surgery S/P cataract extraction S/P hysterectomy Family History (Updated 11/30/19 @ 15:27 by Cary Saunders RN) Father, from [place] age 45 Diabetes Myocardial infarction Father Cancer Mother Hypertension Social History Smoking and tobacco/nicotine status: never used tobacco/nicotine Alcohol intake: never Pertinent Exam Findings alert, oriented x 3 and clear to auscultation bilaterally Recommendations Surgery/Procedure today Coding Level of Care Code Acute Code for Chg Fwd
--- NOTE | 2024-01-16 09:41 | P.ANESASSM_ITS ---
Pre-Anesthetic Assessment Height/Weight: Height 1.55 m Weight 68.039 kg Temp Pulse Resp BP Pulse Ox O2 Del Method 98 F 84 18 144/92 98 Room Air 01/16/24 08:34 01/16/24 08:34 01/16/24 08:34 01/16/24 08:34 01/16/24 08:34 01/16/24 08:34 Preop Diagnosis: dyphagia Operation Date: 01/16/24 09:40 Proposed Procedures p [id number] egd w/ balloon dialation R13.10(Not Applicable) - Irwin Deal MD Familial anesthetic complications: None Was Beta Evie taken within 24 hours: N/A Was Clonidine taken within 24 hours: N/A Last intake: Intake Last Liquid Date 01/15/24 Last Liquid Time 17:00 Last Solid Date 01/15/24 Last Solid Time 17:00 Social No alcohol and No tobacco Exam alert, oriented x 3, clear to auscultation bilaterally and regular rate & rhythm Airway Submandibular: within normal limits Cervical ROM: within normal limits Mallampati: Class II Dentition: false History/ROS No significant history except as noted and No significant complaints Pulmonary Asthma, Exertional Dyspnea and Sleep Apnea CV/HEM Coronary Artery Disease, Hypertension, Myocardial Infarction (15 years, no intervention) and Peripheral Vascular Disease None reported Hepatic None reported GI Gastroesophageal Reflux Disease (None this morning) Metabolic Diabetes Mellitus and Hyperlipidemia [facility] Osteoarthritis/DJD and Rheumatoid Arthritis Neuropsych Anxiety, Depression and Neuropathy Anesthetic Plan ASA status: 3 Anesthesia: Anesthesia Evaluation, General and MAC Risk of > 500 ml blood loss (7ml/kg in children): No Medications/Allergies Home Medications Medication Instructions Recorded Confirmed Last Taken Type acetaminophen 325 mg tablet 650 mg (2 x 325 mg) PO Q6H PRN 07/19/20 01/14/24 01/13/24 Rx Mild/Mod Pain Or Temp >/= 101 #0 tabs albuterol sulfate 90 mcg/actuation 1 inh inhalation QID PRN Shortness 02/03/21 01/14/24 Unknown History aerosol inhaler Of Breath atorvastatin 40 mg tablet 40 mg PO DAILY #180 tabs 10/14/23 01/14/24 01/12/24 Rx glimepiride 4 mg tablet 4 mg PO BID #60 tabs 10/15/23 01/16/24 01/16/24 Rx diabetic shoes with 3 inserts #1 ea 12/03/23 01/14/24 Unknown Rx spironolactone 50 mg tablet 50 mg PO DAILY 01/14/24 01/14/24 01/14/24 History Allergies Allergy/AdvReac Type Severity Reaction Status Date / Time Iodinated Contrast Media Allergy Unknown Unknown Verified 01/14/24 13:46 apple Allergy ALGY-Swell Verified 01/14/24 13:46 Lip/Tongue/Throat banana Allergy ALGY-Swell Verified 01/14/24 13:46 Lip/Tongue/Throat pineapple Allergy ALGY-Swell Verified 01/14/24 13:46 Lip/Tongue/Throat strawberry Allergy ALGY-Swell Verified 01/14/24 13:46 Lip/Tongue/Throat Current Medications Generic Name Dose Route Start Last Admin Trade Name Freq PRN Reason Stop Dose Admin Sodium Chloride 1,000 mls @ 30 mls/hr 01/16/24 08:30 01/16/24 08:42 Sodium Chloride 0.9% IV 30 mls/hr .Q24H GALLITO Administration PFSH Anesthesia Medical History Depression Asthma Osteoarthritis DOTTIE (obstructive sleep apnea) Hypertension Diabetes mellitus Surgical History S/P oophorectomy S/P knee surgery S/P cataract extraction S/P hysterectomy Family History Father , from [place] age 45 Myocardial infarction Mother Cancer Other Diabetes Hypertension Social History Smoking and tobacco/nicotine status: never used tobacco/nicotine Alcohol intake: never Data Anesthesia Cardiac Studies: No Data to Display
[2024-01-16 10:39] VITALS: BP 117/67; PULSE 85; RESP 12; TEMP 36.3; O2SAT 99
[2024-01-16 10:54] VITALS: BP 124/74; PULSE 70; RESP 18; O2SAT 95
--- NOTE | 2024-01-16 11:25 | ANE.PACU2 ---
Inpatient post-anesthesia follow up: Airway intact: Yes Vital signs: Temperature 97.3 F Pulse Rate 70 Respiratory Rate 18 Blood Pressure 124/74 Pulse Oximetry 95 Oxygen Delivery Me thod Room Air Oxygen Flow Rate Fraction of Inspir ed Oxygen Hydration adequate: Yes Nausea and vomiting: No Pain level: 1 Mental status: Baseline
== END 2024-01-16 11:24 | disposition home or self-care (01) ==
PROVIDERS: PCP Family Medicine; Visit Provider Surgery
DX: R13.10 Dysphagia, unspecified (principal); K29.80 Duodenitis without bleeding; K29.50 Unspecified chronic gastritis without bleeding; F32.A Depression, unspecified; J45.909 Unspecified asthma, uncomplicated; M19.90 Unspecified osteoarthritis, unspecified site; G47.33 Obstructive sleep apnea (adult) (pediatric); I10 Essential (primary) hypertension; E11.9 Type 2 diabetes mellitus without complications; I25.10 Atherosclerotic heart disease of native coronary artery without angina pectoris; I25.2 Old myocardial infarction; E78.5 Hyperlipidemia, unspecified
CPT/HCPCS: 36416; 43239; 82962; 88305; J2704; J7030

== ENCOUNTER → 2024-02-04 10:13 | Outpatient (BNVA) | payer MEDICARE, OTHER, SELFPAY | PROVIDERS: PCP Family Medicine; Visit Provider Podiatrist Foot & Ankle Surgery | DX: G62.9 Polyneuropathy, unspecified; L84 Corns and callosities; E11.42 Type 2 diabetes mellitus with diabetic polyneuropathy | CPT/HCPCS: 99213 ==

== ENCOUNTER → 2024-02-07 09:40 | Outpatient (BNVA) | payer MEDICARE, OTHER, SELFPAY | PROVIDERS: PCP Family Medicine; Visit Provider Nurse Practitioner Women's Health | DX: R30.0 Dysuria (principal) | CPT/HCPCS: 81000 ==

== ENCOUNTER → 2024-02-12 13:38 | Outpatient (BNVA) | payer MEDICARE, OTHER, SELFPAY | PROVIDERS: PCP Family Medicine; Visit Provider Surgery | DX: Z09 Encounter for follow-up examination after completed treatment for conditions other than malignant neoplasm (principal) | CPT/HCPCS: 99213 ==

== ENCOUNTER → 2024-08-06 15:41 | Outpatient (BNVA) | payer MEDICARE, OTHER, SELFPAY | PROVIDERS: PCP Family Medicine; Visit Provider Podiatrist Foot & Ankle Surgery | DX: G62.9 Polyneuropathy, unspecified (principal); L84 Corns and callosities; E11.42 Type 2 diabetes mellitus with diabetic polyneuropathy; M20.32 Hallux varus (acquired), left foot | CPT/HCPCS: 99213 ==

== ENCOUNTER → 2024-08-13 15:59 | Outpatient (BNVA) | payer MEDICARE, OTHER, SELFPAY | PROVIDERS: PCP Family Medicine; Visit Provider Family Medicine | DX: I10 Essential (primary) hypertension (principal); E11.9 Type 2 diabetes mellitus without complications | CPT/HCPCS: 80053; 82607; 83036; 85025 ==

== ENCOUNTER 2024-10-30 07:51 | Outpatient (CLI) | payer MEDICARE, OTHER, SELFPAY ==
--- NOTE | 2024-10-30 08:00 | MM_ITS ---
WS: [id number] BILATERAL SCREENING DIGITAL TOMOSYNTHESIS MAMMOGRAM WITH CAD HISTORY: screening COMPARISON: 10/15/2023, 04/02/2023, 09/26/2022 Bilateral CC and MLO views with tomosynthesis and synthetic mammography submitted. Computer aided detection analyzed. Breast composition: There are scattered areas of fibroglandular density. No suspicious masses, microcalcifications or architectural distortion. Asymmetry in the posterior RIGHT breast is stable. Long-term stability of asymmetric densities within the LEFT breast. Benign calcifications LEFT breast. MM/MM scr tomosynthesis [id number] IMPRESSION: BI-RADS: 2 - Benign. FOLLOW UP: 1 Year Follow-up
== END 2024-10-30 07:52 | disposition home or self-care (01) ==
LOC: RAD 07:52
PROVIDERS: PCP Family Medicine; Visit Provider Family Medicine
DX: Z12.31 Encounter for screening mammogram for malignant neoplasm of breast (principal); R92.323 Mammographic fibroglandular density, bilateral breasts; N64.89 Other specified disorders of breast; R92.1 Mammographic calcification found on diagnostic imaging of breast
CPT/HCPCS: 77063; 77067

== ENCOUNTER → 2024-11-23 16:22 | Outpatient (BNVA) | payer MEDICARE, OTHER, SELFPAY | PROVIDERS: PCP Family Medicine; Visit Provider Family Medicine | DX: E11.9 Type 2 diabetes mellitus without complications (principal) | CPT/HCPCS: 80053; 83036; 85025 ==

== ENCOUNTER → 2024-12-03 11:15 | Outpatient (BNVA) | payer MEDICARE, OTHER, SELFPAY | PROVIDERS: PCP Family Medicine; Visit Provider Family Medicine | DX: E87.5 Hyperkalemia (principal) | CPT/HCPCS: 80048 ==

== ENCOUNTER 2025-03-01 06:03 | Outpatient (CLI) | payer MEDICARE, OTHER, SELFPAY ==
--- NOTE | 2025-03-01 07:15 | MR_ITS ---
WS: [id number] MRI BRAIN WITHOUT CONTRAST HISTORY: vertigo/ headache COMPARISON: 07/18/2020 TECHNIQUE: Diffusion imaging, multiplanar T1, T2 and FLAIR imaging obtained. No evidence for acute infarct or hemorrhage. Forde-white matter differentiation is normal. Mild cerebral atrophy and cerebellar atrophy. No progression since the prior exam. Normal hippocampal formations with no atrophy. Mild small vessel changes similar to the prior study with no obvious progression. No infarct. Ventricles and extra-axial spaces are normal. No inferior displacement of cerebellar tonsils. The sella turcica and pituitary gland are unremarkable. Dural venous sinuses and enterprise of Reyes demonstrate no abnormality on this unenhanced studies. Paranasal sinuses: Improved mucoperiosteal disease involving the ethmoid and sphenoid sinuses since 07/18/2020. Mastoid air cells: Normal. Calvarium and scalp: Intact. MR/MR head wo con* [id number] IMPRESSION: 1. No acute infarct. Normal diffusion imaging. 2. Mild stable cerebral and cerebellar atrophy and small vessel changes. 3. Normal hippocampal formations. 4. Improved mucoperiosteal sinus disease in the ethmoid and sphenoid sinuses.
== END 2025-03-01 06:04 | disposition home or self-care (01) ==
LOC: RAD 06:04
PROVIDERS: PCP Family Medicine; Visit Provider Family Medicine
DX: R51.9 Headache, unspecified (principal); R42 Dizziness and giddiness; G31.9 Degenerative disease of nervous system, unspecified
CPT/HCPCS: 70551

== ENCOUNTER → 2025-03-04 15:31 | Outpatient (BNVA) | payer MEDICARE, OTHER, SELFPAY | PROVIDERS: PCP Family Medicine; Visit Provider Podiatrist Foot & Ankle Surgery | DX: E11.42 Type 2 diabetes mellitus with diabetic polyneuropathy (principal); G62.9 Polyneuropathy, unspecified; L84 Corns and callosities; E11.8 Type 2 diabetes mellitus with unspecified complications; M20.32 Hallux varus (acquired), left foot | CPT/HCPCS: 99213 ==

== ENCOUNTER → 2025-05-31 16:54 | Outpatient (BNVA) | payer MEDICARE, OTHER, SELFPAY | PROVIDERS: PCP Family Medicine; Visit Provider Family Medicine | DX: I10 Essential (primary) hypertension (principal); E11.9 Type 2 diabetes mellitus without complications; M79.10 Myalgia, unspecified site; R07.9 Chest pain, unspecified | CPT/HCPCS: 80053; 80061; 83036; 85025; 86140 ==

== ENCOUNTER 2025-07-21 11:43 | Emergency (ER) | payer OTHER, SELFPAY ==
[2025-07-21 11:48] VITALS: BP 155/82; PULSE 73; RESP 16; TEMP 36.3; O2SAT 98
--- OUTSIDE RECORDS SUMMARY | 2025-07-21 11:49 | XMS_ITS | Clinical Summary ---
Author Organization [employer] [facility] Address [address] Tavarezn: Epic Prelude ADT KURTIS FRANCOIS [address] Care Team Providers Care Cosmetic Consultant Name Role Phone Unavailable Primary Care Provider Unavailabl e Allergies Active Allergy Reactions Criticality Noted Date Comments Iodine Anaphylaxis High 03/13/2019 Medications carvediloL (COREG) 25 mg tablet Take 25 mg by mouth 2 times daily with meals. 03/13/2019 Active glimepiride (AMARYL) 2 mg tablet TAKE 1&1/2 TABLET BY MOUTH TWO TIMES A DAY FOR DIABETES MELLITUS TYPE 2 11 01/26/2019 Active amLODIPine (NORVASC) 2.5 mg tablet Take 2.5 mg by mouth daily. 03/13/2019 Active Immunizations Immunization Administration Dates Next Due (M-M-R II/PRIORIX)(12 MO UP) MEASLES, MUMPS AND RUBELLA VIRUS VACCINE, 0.5 ML IM/SUBCUT 05/25/1999 (TDVAX)(7 YRS UP) TETANUS AN D DIPHTHERIA TOXOIDS, ADSORBED (2 LF OF TETANUS TOXOID AND 2 LF OF DIPHTHERIA TOXOID), 0.5ML (PF), IM 05/25/1999 IPV/OPV 05/25/1999 Family History Medical History Relation Name Comments Diabetes Sister Relation Name Status Comments Sister Social History Tobacco Use Types Packs/Day Years Used Date Smoking Tobacco: Never Comments Unknown Sex and Gender Information Value Date Recorded Sex Assigned at Not on file 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 Gender Identity Not on file Sexual Orientation Not on file Last Filed Vital Signs Vital Sign Reading Time Taken Comments Blood Pressure - - Pulse - - Temperature - - Respiratory Rate - - Oxygen Saturation - - Inhaled Oxygen Concentration - - Weight 79.4 kg (175 lb) 03/13/2019 1:00 PM CDT Height 154.9 cm (5' 1 ) 03/13/2019 1:00 PM CDT Body Mass Index 33.07 03/13/2019 1:00 PM CDT Plan of Treatment Health Maintenance Due Date Last Done Comments BREAST CANCER SCREENING 1991 COLORECTAL SCREENING 02/23/1996 Colorectal Cancer Screening 02/23/1996 FIT-DNA Q 3 years 02/23/1996 FIT/FOBT Q 1 year 02/23/1996 Flex Sig/CT Colonography Q 5 years 02/23/1996 DTAP/TDAP/TD VACCINES (1 - Tdap) 05/26/1999 05/25/19 99 PNEUMOCOCCAL VACCINE 50+ YEARS (1 of 1 - PCV) 02/23/20 01 ZOSTER VACCINE (1 of 2) 2001 OSTEOPOROSIS SCREENING 02/23/2016 INFLUENZA VACCINE (#1) 2025 RSV VACCINE (60+ or ) (1 - 1-dose 75+ series) 2026
--- OUTSIDE RECORDS SUMMARY | 2025-07-21 11:49 | XMS_ITS | Encounter Summary ---
Author Organization [facility] Address [address] [place] [address] Care Team Providers Care Animal Therapist Name Role Phone Unavailable Primary Care Provider Unavailabl e Encounter Details Date Type Department Care Team (Latest Contact Info) Description 12/11/2002 Outpatient Historical [address] [phone] Arelis Hernandez MD [address], [address] ALLERGY, UNSPECIFIED (Primary Dx); DIZZINESS AND GIDDINESS Social History Tobacco Use Types Packs/Day Years Used Date Smoking Tobacco: Never Assessed Comments Unknown Sex and Gender Information Value Date Recorded Sex Assigned at Not on file Legal Sex Female 4:05 AM LPTA Gender Identity Not on file Sexual Orientation Not on file documented as of this encounter Plan of Treatment Not on file documented as of this encounter Visit Diagnoses Diagnosis Allergy, unspecified not elsewhere classified- Primary Dizziness and giddiness documented in this encounter
--- OUTSIDE RECORDS SUMMARY | 2025-07-21 11:49 | XMS_ITS | Encounter Summary ---
Author Organization [facility] Address [address] [place] [address] Care Team Providers Care Stable Hand Name Role Phone Unavailable Primary Care Provider Unavailabl e Encounter Details Date Type Department Care Team (Latest Contact Info) Description 07/04/2001 Outpatient Historical [address] [phone] Arelis Hernandez MD [address], [address] DIZZINESS AND GIDDINESS (Primary Dx); INSOMNIA NEC Social History Tobacco Use Types Packs/Day Years Used Date Smoking Tobacco: Never Assessed Comments Unknown Sex and Gender Information Value Date Recorded Sex Assigned at Not on file 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
--- OUTSIDE RECORDS SUMMARY | 2025-07-21 11:49 | XMS_ITS | Encounter Summary ---
Author Organization [facility] Address [address] [place] [address] Care Team Providers Care Sales Analyst Name Role Phone Unavailable Primary Care Provider Unavailabl e Encounter Details Date Type Department Care Team (Latest Contact Info) Description 05/13/2003 Outpatient Historical [address] [phone] Arelis Hernandez MD [address], [address] HEADACHE (Primary Dx); INSOMNIA NEC; HYPOGLYCEMIA NOS Social History Tobacco Use Types Packs/Day Years Used Date Smoking Tobacco: Never Assessed Comments Unknown Sex and Gender Information Value Date Recorded Sex Assigned at Not on file 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
--- OUTSIDE RECORDS SUMMARY | 2025-07-21 11:49 | XMS_ITS | Encounter Summary ---
Author Organization [facility] Address [address] [place] [address] Care Team Providers Care Acid Strength Inspector Name Role Phone Unavailable Primary Care Provider Unavailabl e Encounter Details Date Type Department Care Team (Latest Contact Info) Description 01/20/2002 Outpatient Historical [address] [phone] Arelis Hernandez MD [address], [address] MENSTRUAL DISORDER NEC (Primary Dx) Social History Tobacco Use Types Packs/Day Years Used Date Smoking Tobacco: Never Assessed Comments Unknown Sex and Gender Information Value Date Recorded Sex Assigned at Not on file 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
--- OUTSIDE RECORDS SUMMARY | 2025-07-21 11:49 | XMS_ITS | Encounter Summary ---
Author Organization [facility] Address [address] [place] [address] Care Team Providers Care Manager Brand Name Role Phone Unavailable Primary Care Provider Unavailabl e Encounter Details Date Type Department Care Team (Latest Contact Info) Description 12/03/2001 Outpatient Historical [address] [phone] Arelis Hernandez MD [address], [address] INSOMNIA NEC (Primary Dx); OTHER MALAISE AND FATIGUE; HEADACHE; ABDOMINAL PAIN UNSPEC SITE Social History Tobacco Use Types Packs/Day Years Used Date Smoking Tobacco: Never Assessed Comments Unknown Sex and Gender Information Value Date Recorded Sex Assigned at Not on file 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
--- OUTSIDE RECORDS SUMMARY | 2025-07-21 11:49 | XMS_ITS | Data Portability ---
Author Organization [facility] Address [address] [facility] [address] [place] [address] Care Team Providers Care Operations And Intelligence Assistant Name Role Phone RHONA ALVARADO Primary Care Provider Unavailabl e Assessment Encounter Date Assessment Date Assessment LastModified by Organization Details LastModified Time 01/21/2023 01/21/2023 pt has allergy to citris and orange. counseled pt on monitoring ingredients in food as well as in medications. recommend he visit [facility] pharmacy in [place] to discuss vitamins and meds with the pharmacist, Arun Valencia, there. [email or web address] Not available 01/21/2023 17:01:59 04/14/2024 04/14/2024 Counseled pt on having one PCP, she prefers to see myself. A Care Coordination Assessment form was filled out as part of this patient's office visit today. Document scribed by Adolfo Blanchard Hvac Tech. I was present during interview and exam. I have reviewed and agree with above documentation. Dr. Rhona Alvarado. [email or web address] Not available 04/14/2024 13:50:38 Plan of Treatment Reminders Order Date Submit Date Provider Last Modified By Organization Details Last Modified Time Details Appointments None recorded. Lab unlisted lab - sureswab(R) advanced vaginitis plus, tma 2023 024 [facility], [address] [place] [address] [address], [address] [place], [address], 00:26:08 pap, LB 2023 024 [facility], [address], [address], [place], [address], 4 10:57:35 TSH, serum or plasma [address] ([facility]), [address] [place], [address], 5 03:30:06 vitamin B12 + folate, serum or blood [address] ([facility]), [address] [place] [address], [address], 5 12:38:29 vitamin D, 25-hydroxy, total, serum [address] ([facility]), [address] [place] [address], [address], 5 12:38:29 HbA1c (hemoglobin A1c), blood [address] ([facility]), [address] [place] [address], [address], 5 03:29:43 microalbumi n/creatinin e, mass ratio, urine [address] ([facility]), [address] [place] [address], [address], 5 12:38:29 CMP, serum or plasma 2023 024 [place] [address] [facility], [address] [place] [address], [address], [place], [address], 5 19:51:43 lipid panel, blood 2023 024 lesa [facility], [address] [place] [address], [address], [place], [address], 4 10:14:24 CBC 2023 024 [email or web address] [facility], [address] [facility], [address], [place], [address], 4 10:14:24 rapid flu (A+B) [address] ([facility]), [address] [place], [address], 3 13:15:48 SARS CoV 2 RNA, QL, nasopharynx [address] ([facility]), [address] [place], [address], 3 13:15:49 Referral gynecologis t referral - Please schedule with Hanna Hooks for Well Woman's Exam and evaluation. 2023 024 [email or web address] Not available 13:03:11 Procedures None recorded. Surgeries None recorded. Imaging None recorded. Medication Orders Diflucan 150 mg tablet 2023 024 [facility] #[id number], [address] [facility], [address], [place], [address], 4 10:27:28 escitalopra m 5 mg tablet 2023 024 [email or web address] 47 [facility], [facility] [place], [address], 4 15:16:47 glimepiride 4 mg tablet 2023 024 [email or web address] 47 [facility], [facility] [place], [address], 4 15:16:47 Rybelsus 3 mg tablet 2023 024 [place] [address] [facility], [facility] [place], [address], 4 15:16:47 atorvastati n 40 mg tablet 2023 024 [place] [address] [facility], [address] [place] [address], [address], 4 15:16:47 spironolact one 50 mg tablet 2023 024 [place] [address] [facility], [address] [place] [address], [address], 4 15:16:47 amitriptyli ne 25 mg tablet 2022 023 [facility] [address], [address], 4 13:51:27 Paxlovid 300 mg (150 mg x 2)-100 mg tablets in a dose pack [address], [address] [place] [address], [address], 3 16:52:21 prednisone 20 mg tablet [address], [address], 4 18:13:52 Patient TargetsNo targets recorded. Patient InstructionsNo instructions recorded. 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 Referring Physician: Rhona Alvarado, Family Medicine, Encounter Date: 04/14/2024 Results Created Date Observation Date Name Description Value Unit Range Abnormal Flag Note LastModifiedBy Organization Detail LastModifiedTime 12/12/1912/11/2022 SARS CoV 2 RNA, QL, nasop haryn x COVID positi ve Not Available [facility] ([facility]) [address] [place], [address], 12/11/2022 12:52:20 12/12/19 23 12/11/2022 rapid flu (A+B) Flu negati ve Not Available [facility] ([facility]) [address] [place], [address], 12/11/2022 12:52:15 04/21/20 24 04/22/2024 SURES WAB(R ) ADVAN ALVARO VAGIN ITIS PLUS, TMA sureswab(R) adv bacterial vaginosis (bv), tma NEGATI VE negati ve normal Not Available [place] [address] [place], [address], 04/23/2024 00:26:08 04/21/20 24 04/22/2024 SURES WAB(R ) ADVAN ALVARO VAGIN ITIS PLUS, TMA gee species NOT DETECT ED not detect ed normal Not Available [facility] [place] [address] [place], [address], 04/23/2024 00:26:08 04/21/20 24 04/22/2024 SURES WAB(R ) ADVAN ALVARO VAGIN ITIS PLUS, TMA gee glabrata DETECT ED not detect ed abnormal C. glabr alana, which is respo nsibl e for the major ity of non-a lbica ns CV in the [place] may have decre ased susce ptibi lity to stand antony antim ycoti c thera peuti c inter venti on jayna red to C. albic ans. Mami da speci es C. albic ans, C. tropi calis , C. parap isaak is, and/o r C. dubli niens is can be detec dominic, but not diffe renti ated, in the Mami da spp. resul t. Not Available [facility] [address] [address] [place], [address], 04/23/2024 00:26:08 04/21/2004/22/2024 SURES WAB(R ) ADVAN ALVARO VAGIN ITIS PLUS, TMA trichomonas vaginalis (TV), tma NOT DETECT ED not detect ed normal Not Available [facility] [address] [address] [place], [address], 04/23/2024 00:26:08 04/21/2004/22/2024 SURES WAB(R ) ADVAN ALVARO VAGIN ITIS PLUS, TMA chlamydia trachomatis RNA, tma, urogenital NOT DETECT ED not detect ed normal Not Available [facility] [address] [address] [place], [address], 04/23/2024 00:26:08 04/21/20 24 04/22/2024 SURES WAB(R ) ADVAN ALVARO VAGIN ITIS PLUS, TMA neisseria gonorrhoeae RNA, tma, urogenital NOT DETECT ED not detect ed normal For addit ional infor nasir driscoll refer to https ://ed ucati on.[employer]/f aq/FA Q154 (This link is being provi ded for trent gilliam/ chris lopez ses only. ) Not Available [facility] [address] [address] [address] , [place], [address], 04/23/2024 00:26:08 04/21/2004/23/2024 IMAGE -GUID ED PAP W/AGE BASED SCR SARA COLS comment This order for age-b ased cervi jordin cance r and STI scree steven follo ws ACOG guide lines (PB 168, 140, FAQ07 1). See indiv idual assay s for perfo rming site locat ion. Not Available [facility] [address] [address] [address] , [place], [address], 04/23/2024 10:57:35 04/21/2004/23/2024 IMAGE -GUID ED PAP W/AGE BASED SCR SARA COLS clinical information: normal Carrie l exam Not Available [address], [address], 04/23/2024 10:57:35 04/21/2004/23/2024 IMAGE -GUID ED PAP W/AGE BASED SCR SARA COLS LMP: normal None given Not Available [address], [address], 04/23/2024 10:57:35 04/21/2004/23/2024 IMAGE -GUID ED PAP W/AGE BASED SCR SARA COLS prev. Pap: normal None given Not Available [address], [address], 04/23/2024 10:57:35 04/21/20 24 04/23/2024 IMAGE -GUID ED PAP W/AGE BASED SCR SARA COLS prev. BX: normal None given Not Available [address], [address], 04/23/2024 10:57:35 04/21/2004/23/2024 IMAGE -GUID ED PAP W/AGE BASED SCR SARA COLS source: normal Cervi x, Endoc ervix Not Available [address], [address], 04/23/2024 10:57:35 04/21/2004/23/2024 IMAGE -GUID ED PAP W/AGE BASED SCR SARA COLS statement of adequacy: normal Satis facto ry for evalu ation . Endoc ervic al/tr ansfo rmati on zone compo nent prese nt. Age and/o r menst rual statu s not provi ded Not Available [address], [address], 04/23/2024 10:57:35 04/21/20 24 04/23/2024 IMAGE -GUID ED PAP W/AGE BASED SCR SARA COLS interpretati on/result: normal Cytol ogy Resul ts: Negat raza for intra epith elial lesio n or malig sharmin . Not Available [address] [address] [address], [place], [address], 04/23/2024 10:57:35 04/21/20 24 04/23/2024 IMAGE -GUID ED PAP W/AGE BASED SCR SARA COLS comment: normal This Pap test has been evalu ated with compu ter kym alfaro techn ology . Not Available [address] [address] [address], [place], [address], 04/23/2024 10:57:35 04/21/2004/23/2024 IMAGE -GUID ED PAP W/AGE BASED SCR SARA COLS cytotechnolo gist: normal LMT, CT( CP) CT scree steven locat ion: [place] [address] [place] [place] [address] Not Available [address] [address] [address], [place], [address], 04/23/2024 10:57:35 04/21/2004/23/2024 IMAGE -GUID ED PAP W/AGE BASED SCR SARA COLS comment EXPLA NATOR Y NOTE: The Pap is a scree steven test for cervi jordin cance r. It is not a diagn ostic test and is subje ct to false negat raza and false posit raza resul ts. It is most relia ble when a satis facto ry sampl e, regul raeann obtai iwlder, is submi tted with relev ant clini jordin findi ngs and histo ry, and when the Pap resul t is evalu ated along with histo molly and curre nt clini jordin infor matio n. Not Available [address] [address] [place], [address], 04/23/2024 10:57:35 04/02/20 23 04/02/2023 MAMMO , scree steven, bilat eral No observ ation record ed. [email or web address] [facility] [address] [facility] [place], [address], 04/09/2023 13:36:41 04/02/20 23 04/02/2023 MAMMO , scree steven, bilat eral No observ ation record ed. [email or web address] [facility] [address] [facility] [place], [address], 04/09/2023 13:36:29 10/15/19 24 10/15/2023 MAMMO , scree steven, bilat eral No observ ation record ed. [address] [facility] [place], [address], 10/21/2023 17:17:15 10/16/19 24 10/15/2023 biops y, breas t (PROC ) No observ ation record ed. [address] [facility] [place], [address], 10/21/2023 17:11:45 10/16/19 24 10/15/2023 MAMMO , scree steven, bilat eral No observ ation record ed. [address] [facility] [place], [address], 10/21/2023 17:16:51 Result Notes None recorded. Problems Name Problem SNOMED Code Status Onset Date Resolution Date Notes Provider Name and Address Organization Details Recorded Time Generalized anxiety disorder 44745945 Active 2022 Rhona Alvarado DO [address] [place] [address], [address], [facility], L.LBertCBert 3 16:08:55 Chronic insomnia 018680748 Active 2022 Rhona Alvarado DO [address] [place] [address], [address], [facility], L.L.CBert 3 16:08:56 Essential hypertension 41836935 Active 2022 Rhona Alvarado DO [address] [place], [address] , [facility] 3 16:08:57 Moderate recurrent major depression 33984383 Active 2023 Adolfo Blanchard null, [facility] 4 13:52:05 Vaginal lump 056454944 Active 2023 Adolfo Kiest null, [facility] 4 13:59:50 Diabetes mellitus 37163493 Active 2023 Adolfo Mosquedaest null, [facility] 4 14:12:07 Peripheral vascular disease 366425320 Active 2023 Adolfo Mosquedaest null, [facility] 4 14:12:08 Hyperlipidemia 31294956 Active 2023 Adolfo Kiest null, [facility] 4 14:13:26 Problem Notes None recorded. Medical Equipment None Reported. Allergies No known drug allergies Medications Name Sig Start Date Stop Date Status Note LastModified by Organization Details LastModified Time pioglitaz one 15 mg tablet TAKE 1 TABLET BY MOUTH EVERY DAY 04/14 completed Not Available Not Available Not Available atorvasta tin 40 mg tablet TAKE 1 TABLET BY MOUTH nightly FOR choleste rol active Not Available Not Available No t Available buspirone 5 mg tablet one po bid prn anxiety 03/31 completed Recorded 10/09/19 23 3:51PM by Rhona Alvarado DO, Office Visit; Refill Quantity : 45; Tablet; Not Available Not Available Not Available fluconazo le 150 mg tablet TAKE 1 TABLET BY MOUTH EVERY OTHER DAY FOR 8 DAYS active Not Available Not Available No t Available sucralfat e 100 mg/mL oral suspensio n TAKE 10ML BY MOUTH TWICE DAILY FOR TWO WEEKS 04/14 completed Not Available Not Available Not Available prednison e 20 mg tablet TAKE ONE TABLET BY MOUTH EVERY DAY IN THE MORNING FOR SEVEN DAYS 03/31 completed Not Available Not Available Not Available glimepiri de 2 mg tablet TAKE 1 & 1/2 TABLETS BY MOUTH TWICE DAILY 04/14 completed Not Available Not Available Not Available alprazola m 0.25 mg tablet TAKE 1 TABLET BY MOUTH TWICE DAILY NEEDED FOR anxiety 04/14 completed Not Available Not Available Not Available amitripty line 25 mg tablet TAKE 1 TABLET BY MOUTH EVERY DAY AT BEDTIME 04/14 completed Not Available Not Available Not Available trazodone 100 mg tablet TAKE 1 TABLET BY MOUTH EVERY DAY 04/14 completed Not Available Not Available Not Available pantopraz ole 40 mg tablet,de layed release TAKE 1 TABLET BY MOUTH TWICE DAILY 04/14 completed Not Available Not Available Not Available erythromy daysi 5 mg/gram (0.5 %) eye ointment 1/2 inch ribbon 6 times a day to affected eye 01/21 completed Not Available Not Available Not Available glimepiri de 4 mg tablet Take 1 tablet twice a day by oral route for 90 days. active Not Available Not Available No t Available sertralin e 25 mg tablet TAKE 1 TABLET BY MOUTH EVERY MORNING FOR mood and anxiety 01/21 completed Not Available Not Available Not Available gabapenti n 100 mg capsule take 1 capsule BY MOUTH EVERY DAY AT NIGHT BEFORE BEDTIME 04/14 completed Not Available Not Available Not Available estradiol 0.01% (0.1 mg/gram) vaginal cream apply ONE gram vaginall y TWICE DAILY FOR 14 DAYS THEN apply twice weekly 04/14 completed Not Available Not Available Not Available albuterol sulfate HFA 90 mcg/actua tion aerosol inhaler INHALE 1 TO 2 PUFFS BY MOUTH EVERY 4 HOURS NEEDED 03/31 completed Not Available Not Available Not Available risperido ne 0.5 mg tablet TAKE 1 TABLET BY MOUTH AT BEDTIME 04/14 completed Not Available Not Available Not Available spironola ctone 50 mg tablet one tablet daily active Not Available Not Available No t Available escitalop melia 5 mg tablet Take 1 tablet every day by oral route for 30 days, for mood. active Not Available Not Available No t Available Rybelsus 7 mg tablet TAKE 1 TABLET BY MOUTH EVERY DAY FOR diabetes 09/24 /2024 completed Not Available Not Available Not Available Rybelsus 3 mg tablet 1 tablet daily active Not Available Not Available No t Available Paxlovid 300 mg (150 mg x 2)-100 mg tablets in a dose pack take all 3 morning tabs (yellow side) by mouth at the same time & all 3 evening tabs (blue side) at the same time for 5 days as directed 01/21 completed Not Available Not Available Not Available Vitals Date Recorded Body weight Body mass index (BMI) Body height Oxygen saturation Heart rate Respiratory rate Body temperature Systolic And Diastolic Provider Name and Address Organization Details Last Updated DateTime 3 33924.2 6 g 28.2 kg/m2 154.94 cm 98 % 98 /min 20 /min 97.8 [degF] 138/80 mm[Hg] [facility] 3 12:27:01 Date Recorded Body height Body mass index (BMI) Body weight Oxygen saturation Heart rate Respiratory rate Body temperature Systolic And Diastolic Provider Name and Address Organization Details Last Updated DateTime 3 154.94 cm 29.3 kg/m2 72239.8 2 g 99 % 99 /min 18 /min 97.3 [degF] 142/86 mm[Hg] [facility] 3 16:47:34 Date Recorded Body weight Oxygen saturation Heart rate Respiratory rate Body mass index (BMI) Body height Systolic And Diastolic Provider Name and Address Organization Details Last Updated DateTime 4 65700.9 6 g 98 % 64 /min 18 /min 28.4 kg/m2 154.94 cm 120/88 mm[Hg] Meagan Krause [facility] 4 13:12:44 Date Recorded Body height Body mass index (BMI) Body weight Oxygen saturation Heart rate Respiratory rate Body temperature Systolic And Diastolic Provider Name and Address Organization Details Last Updated DateTime 4 154.94 cm 28.6 kg/m2 43026.5 5 g 97 % 78 /min 20 /min 97 [degF] 130/70 mm[Hg] HARSHAD LE [facility] 4 09:53:10 Social History None recorded. Functional Status Question Answer Note LastModified by Organizat ion Details LastModified Time Do you use any illicit or recreational drugs? No [email or web address] Information not available 12/11/2022 Do you or have you ever used any other forms of tobacco or nicotine? No [email or web address] Information not available 12/11/2022 What is your level of alcohol consumption? None Information not available 12/11/2022 Mental Status None recorded. Family History Nothing Reported. Medical History No medical history recorded. Gynecological HistoryNo gynecological history recorded. Obstetrics History GPAL:G 0 P 0 0 0 0 Immunizations Vaccine Type Date Status Note Provider Nam e and Address Organization Details Recorded Time IPV 9 completed Mayuri sadler [facility], [place]nea 03/31/2024 18:14:33 MMR 9 completed Mayuri sadler [facility], [place] 03/31/2024 18:14:33 COVID-19, mRNA, LNP-S, PF, 100 mcg/0.5mL dose or 50 mcg/0.25mL dose 1 completed Mayuri sadler [facility], GladysCBert 03/31/2024 18:14:33 COVID-19, mRNA, LNP-S, PF, 100 mcg/0.5mL dose or 50 mcg/0.25mL dose 1 completed Mayuri sadler [facility], LJuanitoCBert 03/31/2024 18:14:33 Td (adult), 2 Lf tetanus toxoid, preservative free, adsorbed 9 completed Mayuri sadler [facility], GladysCBert 03/31/2024 18:14:33 Past Encounters Encounter ID Performer Location Encounter Start Date Encounter Closed Date Diagnosis/Indication Diagnosis SNOMED-CT Code Diagnosis ICD10 Code Diagnosis IMO Codes Diagnosis Note [id number] Rhona Alvarado DO [facility] ([facility]) [address] [place] [address] 12/11/2022 11:47:39 12/11/2022 20:18:39 Productive cough 75062604 R05.9 COVID-19 868202263 U07.1 Pt is covid positive here in the office today.I counseled the patient on diagnosis, treatment options, medication s, and expectatio ns. All questions were addressed. we will start paxolvid and prednisone .Pt is to stay home and isolate for another 2 days, and then mask in public for an additional 5 days.They were instructed to call the office or come in for Follow Up with any questions, concerns, or worsening problems. [id number] Rhona Alvarado DO [facility] ([facility]) [address] [place] [phone] 01/21/2023 16:27:50 01/21/2023 17:17:10 Essential hypertension 91488900 I10 stable. Generalize d anxiety disorder 46327714 F41.1 patient desires to stop her sertraline . We will stop it and start low-dose amitriptyl ine. Chronic insomnia 5387783 04 F51.04 Start low-dose amitriptyl ine. Counseled on sleep hygiene. Counseled on risks [id number] Rhona Alvarado DO [facility] ([facility]) [address] [place] [address] 04/14/2024 11:56:11 04/14/2024 17:37:02 Essential hypertension 81399056 I10 stable, continue Spironolac tone. Chronic insomnia 5698410 04 F51.04 Stop amitriptyl ine and Trazodone. Hypercholesterolemia 136 [address]604 E78.00 Continue Atorvastat in 40mg daily. Type 2 ravi betes mellitus 82070948 E11.9 Moderate r ecurrent major depression 37064410 F33.1 04/14/24- Lab today, start Lexapro 5mg, mood is deteriorat ing since she is not working. Counseled on diagnosis, treatment options including medication s and possible side effects. Vaginal lump 164516737 R 19.09 04/14/24- referral to Ana Luisa Hooks for Well Woman's exam and evaluation . Diabetes mellitus 398856 09 E11.69 E11.59 E11.36 04/14/24- counseled ok to resume Rybelsus. Continue Glimepirid e. Peripheral vascular disease 462558031 I73.9 Hyperlipidemia 83479491 E78.5 Continue Atorvastat in 40mg daily. Anxiety 26135467 F41.9 Stop Amitriptyl ine. Mild inter mittent asthma 990862403 J45.20 [id number] HANNA HOOKS PA-C [facility] ([facility]) [address] [place] [phone] 04/21/2024 09:39:33 04/21/2024 10:39:42 Vaginal discharge 295139687 N89.8 Gynecologi c examination 51959939 Z01.419 Health Concerns Section Related Observation LastModified by Organization Detai ls LastModified Time None Recorded Concern Status LastModified by Organization Details LastModified Time None Recorded Advance Directives Directive None Recorded Payers Insurance Date Sequence Insurance Name Policy Number Policy Rodríguez Covered Member ID Rodríguez Member ID Guarantor Name 05/23/2024 2 FOR LIFE ( - MEDICARE SUPPLEMENT) Walter Akridge [id number] Ederlinda S Akridge 05/24/2024 1 MEDICARE [place]: [place] Ederlinda S Akridge [id number] Ederlinda S Akridge 05/24/2024 [place] - MEDICARE-NE - PART A - [facility] (MEDICARE) Ederlinda S Akridge [id number] Ederlinda S Akridge Notes Date Note Type Note Provider Name and Address Organization Details Recorded Time 3 text/html CoughReported by PatientHPIFor severity, patient reportsworseningbut reportsmoderate. For associated symptoms, patient reportsfever,chills,nausea, wheezing,shortness of breath,muscle pain,tiredness, andhoarsenessbut reportsno chest pain,no heartburn,no vomiting,no edema,no agitation,no sputum production,no chest wall tenderness,no throat clearing,no nasal discharge,no urinary incontinence,no syncope,no depression,no dyspnea,no rib fractures,no difficulty swallowing, andno hemoptysis. For quality, patient reportsproductive. For duration, patient reportsconstant.ROS as noted in the HPI pt c/o flu like sx started a month ago while traveling to the [facility], sx were improving until this last week. sx are worse, pt c/o headache, cough, chills, chest congestion with tightness, body aches. Rhona Alvarado, DO [address] [place] [address], [phone], [facility], LBertLBertC. 12/11/2022 13:22:35 3 text/html EdemaReported by PatientHPIFor quality, patient reportspainful. For associated symptoms, patient reportsshortness of breathandcoughbut reportsno chest painandno palpitations. For location, patient reportsface. For severity, patient reportsmoderate. For duration, patient reportsconstant. pt c/o facial swelling with sore throat, having trouble sleeping. Facial swelling is not severe. She has had no swallowing problems or trouble breathing. She thinks it is from her medication. states she has stopped taking buspirone and escitalopram, states swelling has improved since d/c medication would like to discuss xanax and a sleeping medication or xanax to help with anxiety and sleeping Rhona Avlarado, DO [address] [place] [address], [phone], [facility], LBertLBertC. 01/22/2023 16:09:30 4 text/html ROS as noted in the HPI Pt presents for recheck chronic illness, 14 months HTN, Anxiety, Insomnia. No recent ER visits or hospitalizations. She c/o frequent headaches, difficulty swallowing.She reports she had w/u regarding her swallowing and everything was negative. Mood has been down some lately, she relates this to not working anymore. Having some difficulty sleeping. She hasn't been taking her Trazodone because it makes her shaky.She is not taking Amitriptyline regularly. She reports Dr. Chung stopped her Rybelsus, she would like to start it again. Also with c/o vaginal lump/ pain. She was seen by [facility] for this in the past, told she had a cyst. Rhona Michaelon, DO [address] [place] [address], [id number], [facility], [place]. 04/17/2024 17:50:19 4 text/html Vaginal/Vulvar ProblemReported by PatientHPIFor location, patient reportslocalized. For onset/timing, patient reportsgradual. For duration, patient reportsconstantandwax/wanes . For quality, patient reportspainfulandsingle lesion/sore. For severity, patient reportsmoderate. For context, patient reportspostmenopausal. For alleviating factors, patient reportsnone. For aggravating factors, patient reportsnone. I saw [facility] about a month ago and they gave me a swab to use but I didn't do it and I am not going back there. It hurts mostly at night, they didn't see anything going on but Dr Alvarado thinks I should be checked . Occasionally has some yellow drainage.I looked up records. no swabs taken she was given rx for estrogen cream but has not started.She is a diabetic.Not sexually active in 2 months due to the pain she is not having. HANNA HOOKS PA-C [address] [place], [address], [facility], [place]. 04/21/2024 10:31:35 OBGyn Episode No OBEpisode recorded.
--- OUTSIDE RECORDS SUMMARY | 2025-07-21 11:49 | XMS_ITS | Encounter Summary ---
Author Organization [facility] Address [address] [place] [address] Care Team Providers Care Outside Physical Damage Appraiser Name Role Phone Unavailable Primary Care Provider Unavailabl e Encounter Details Date Type Department Care Team (Latest Contact Info) Description 09/22/2002 Outpatient Historical [facility] Operating Room [address] [place] [address] Shorty Mejia MD [address] [address] SENILE CATARACT NOS (Primary Dx) Social History Tobacco Use Types Packs/Day Years Used Date Smoking Tobacco: Never Assessed Comments Unknown Sex and Gender Information Value Date Recorded Sex Assigned at Not on file 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
--- OUTSIDE RECORDS SUMMARY | 2025-07-21 11:49 | XMS_ITS | Encounter Summary ---
Author Organization [facility] Address [address] [place] [address] Care Team Providers Care Chief Information Security Officer Name Role Phone Unavailable Primary Care Provider Unavailabl e Encounter Details Date Type Department Care Team (Latest Contact Info) Description 07/09/2003 Outpatient Historical [address] [address] Arelis Hernandez MD [address], [address] ABDOMINAL PAIN UNSPEC SITE (Primary Dx); UNSPEC CONSTIPATION Social History Tobacco Use Types Packs/Day Years Used Date Smoking Tobacco: Never Assessed Comments Unknown Sex and Gender Information Value Date Recorded Sex Assigned at Not on file 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
--- OUTSIDE RECORDS SUMMARY | 2025-07-21 11:49 | XMS_ITS | Encounter Summary ---
Author Organization [facility] Address [address] [place] [address] Care Team Providers Care Grading Clerk Name Role Phone Unavailable Primary Care Provider Unavailabl e Encounter Details Date Type Department Care Team (Latest Contact Info) Description 12/17/2001 Outpatient Historical [address] [address] Arelis Hernandez MD 120 [address], [address] LUMP OR MASS IN BREAST (Primary Dx); DIZZINESS AND GIDDINESS; MENSTRUAL DISORDER NEC Social History Tobacco Use Types Packs/Day Years Used Date Smoking Tobacco: Never Assessed Comments Unknown Sex and Gender Information Value Date Recorded Sex Assigned at Not on file 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
--- OUTSIDE RECORDS SUMMARY | 2025-07-21 11:49 | XMS_ITS | Clinical Summary ---
Author Organization [facility] Address [address] [place] [address] Care Team Providers Care Abattoir Supervisor Name Role Phone Unavailable Primary Care Provider Unavailabl e Allergies Active Allergy Reactions Criticality Noted Date Comments Iodine Anaphylaxis High 03/13/2019 Medications glimepiride (AMARYL) 2 mg tablet TAKE 1&1/2 TABLET BY MOUTH TWO TIMES A DAY FOR DIABETES MELLITUS TYPE 2 11 01/26/2019 Active amLODIPine (NORVASC) 2.5 mg tablet Take 2.5 mg by mouth daily. Active carvedilol (COREG) 25 mg tablet Take 25 mg by mouth 2 times daily with meals. 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 Gender Identity Not on file Sexual Orientation [...] BREAST CANCER SCREENING 1991 COLORECTAL SCREENING 02/23/1996 FIT-DNA Q 3 years 02/23/1996 Flex Sig/CT Colonography Q 5 years 02/23/1996 DTAP/TDAP/TD VACCINES (1 - Tdap) 05/26/1999 05/25/19 99 PNEUMOCOCCAL VACCINE 50+ YEARS (1 of 1 - PCV) 02/23/20 01 ZOSTER VACCINE (1 of 2) 2001 Colorectal Cancer Screening 12/03/2001 FIT/FOBT Q 1 year 12/03/2001 12/03/2000 OSTEOPOROSIS SCREENING 02/23/2016 INFLUENZA VACCINE (#1) 2025 RSV VACCINE (60+ or ) (1 - 1-dose 75+ series) 2026 Insurance [facility] PPO [facility] EM[facility] [place] MEDICARE PART A AND B
--- OUTSIDE RECORDS SUMMARY | 2025-07-21 11:49 | XMS_ITS | Encounter Summary ---
Author Organization [facility] Address [address] [place] [address] Care Team Providers Care Photo Graphics Librarian Name Role Phone Unavailable Primary Care Provider Unavailabl e Encounter Details Date Type Department Care Team (Latest Contact Info) Description 04/12/1999 Outpatient Historical [facility] Family Medicine- [address] [address] Irwin Villasenor MD [address] [place] [address] Acute frontal sinusitis (Primary Dx) Social History Tobacco Use Types Packs/Day Years Used Date Smoking Tobacco: Never Assessed Comments Unknown Sex and Gender Information Value Date Recorded Sex Assigned at Not on file 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
--- OUTSIDE RECORDS SUMMARY | 2025-07-21 11:49 | XMS_ITS | Encounter Summary ---
Author Organization [facility] Address [address] [place] [address] Care Team Providers Care Sales Agent Marine Insurance Name Role Phone Unavailable Primary Care Provider Unavailabl e Encounter Details Date Type Department Care Team (Latest Contact Info) Description 08/24/2002 Outpatient Historical [facility] Ophthal[facility] 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
--- OUTSIDE RECORDS SUMMARY | 2025-07-21 11:49 | XMS_ITS | Encounter Summary ---
Author Organization [facility] Address [address] [place] [address] Care Team Providers Care Machine Fancy Stitcher Name Role Phone Unavailable Primary Care Provider Unavailabl e Encounter Details Date Type Department Care Team (Latest Contact Info) Description 12/03/2000 Outpatient Historical [address] [address] Arelis Hernandez MD [address], [address] Hypoglycemia, unspecified (Primary Dx); Gynecologic examination; Special screening for malignant neoplasms of other sites Social History Tobacco Use Types Packs/Day Years Used Date Smoking Tobacco: Never Assessed Comments Unknown Sex and Gender Information Value Date Recorded Sex Assigned at Not on file 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
--- OUTSIDE RECORDS SUMMARY | 2025-07-21 11:49 | XMS_ITS | Encounter Summary ---
Author Organization [facility] Address [address] [place] [address] Care Team Providers Care Farebox Repairer Name Role Phone Unavailable Primary Care Provider Unavailabl e Encounter Details Date Type Department Care Team (Latest Contact Info) Description 11/21/2000 Outpatient Historical [facility] [address], [place] [address] Elvin Kendall MD [address] [place] [address] Acute tonsillitis (Primary Dx); Other malaise and fatigue; Allergic rhinitis, cause unspecified Social History Tobacco Use Types Packs/Day Years Used Date Smoking Tobacco: Never Assessed Comments Unknown Sex and Gender Information Value Date Recorded Sex Assigned at Not on file 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
--- OUTSIDE RECORDS SUMMARY | 2025-07-21 11:49 | XMS_ITS | Encounter Summary ---
Author Organization [facility] Address [address] [place] [address] Care Team Providers Care Air Compressor Mechanic Name Role Phone Unavailable Primary Care Provider Unavailabl e Encounter Details Date Type Department Care Team (Late st Contact Info) Description 10/15/2002 Outpatient Historical [facility] [address] [place] [phone] Smith Hamlin S, OD [address] [place] [address] LENS REPLACEMENT NEC (Primary Dx) Social History Tobacco Use Types Packs/Day Years Used Date Smoking Tobacco: Never Assessed Comments Unknown Sex and Gender Information Value Date Recorded Sex Assigned at Not on file 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
--- OUTSIDE RECORDS SUMMARY | 2025-07-21 11:49 | XMS_ITS | Encounter Summary ---
Author Organization [facility] Address [address] [place] [address] Care Team Providers Care Installation Specialist Name Role Phone Unavailable Primary Care Provider Unavailabl e Encounter Details Date Type Department Care Team (Latest Contact Info) Description 02/08/2004 Outpatient Historical [facility] Medicine [address] [phone] Tia Gray MD [address] [place] [address] HYPERTENSION NOS (Primary Dx); NONINFECT VAG LEUKORRHEA; MASTODYNIA Social History Tobacco Use Types Packs/Day Years Used Date Smoking Tobacco: Never Assessed Comments Unknown Sex and Gender Information Value Date Recorded Sex Assigned at Not on file 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
--- OUTSIDE RECORDS SUMMARY | 2025-07-21 11:49 | XMS_ITS | Encounter Summary ---
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
--- OUTSIDE RECORDS SUMMARY | 2025-07-21 11:49 | XMS_ITS | Encounter Summary ---
Author Organization [facility] Address [address] [place] [address] Care Team Providers Care Nurse Practitioner Home Assessments Name Role Phone Unavailable Primary Care Provider Unavailabl e Encounter Details Date Type Department Care Team (Latest Contact Info) Description 04/28/2001 Outpatient Historical [address] [address] Arelis Hernandez MD [address], [address] Unspecified hypertrophic and atrophic condition of skin (Primary Dx) Social History Tobacco Use Types Packs/Day Years Used Date Smoking Tobacco: Never Assessed Comments Unknown Sex and Gender Information Value Date Recorded Sex Assigned at Not on file Legal Sex Female 4:05 AM DIRECTOR OF APPLICATION DEVELOPMENT Gender Identity Not on file Sexual Orientation Not on file documented as of this encounter Plan of Treatment Not on file documented as of this encounter Visit Diagnoses Diagnosis Unspecified hypertrophic and atrophic condition of skin- Primary documented in this encounter
--- OUTSIDE RECORDS SUMMARY | 2025-07-21 11:49 | XMS_ITS | Encounter Summary ---
Author Organization [facility] Address [address] [place] [address] Care Team Providers Care Generator Rebuilder Name Role Phone Unavailable Primary Care Provider Unavailabl e Encounter Details Date Type Department Care Team (Latest Contact Info) Description 09/23/2002 Outpatient Historical [facility] Ophthalmology [address] [place] [address] Shorty Mejia MD [address] [place] [address] LENS REPLACEMENT NEC (Primary Dx) Social History Tobacco Use Types Packs/Day Years Used Date Smoking Tobacco: Never Assessed Comments Unknown Sex and Gender Information Value Date Recorded Sex Assigned at Not on file Legal Sex Female 4:05 AM REGULATORY COMPLIANCE MANAGER Gender Identity Not on file Sexual Orientation Not on file documented as of this encounter Plan of Treatment Not on file documented as of this encounter Visit Diagnoses Diagnosis Lens replaced by other means- Primary documented in this encounter
--- OUTSIDE RECORDS SUMMARY | 2025-07-21 11:49 | XMS_ITS | Encounter Summary ---
Author Organization [facility] Address [address] [place] [address] Care Team Providers Care Metal Reclamation Kettle Tender Name Role Phone Unavailable Primary Care Provider Unavailabl e Encounter Details Date Type Department Care Team (Latest Contact Info) Description 03/08/2003 Outpatient Historical [facility] [place] [address] [address] Elvin Kendall MD [address] [place] [address] JOINT PAIN-L/LEG (Primary Dx) Social History Tobacco Use Types Packs/Day Years Used Date Smoking Tobacco: Never Assessed Comments Unknown Sex and Gender Information Value Date Recorded Sex Assigned at Not on file Legal Sex Female 4:05 AM SMOKING TOBACCO PACKER HAND Gender Identity Not on file Sexual Orientation Not on file documented as of this encounter Plan of Treatment Not on file documented as of this encounter Visit Diagnoses Diagnosis Pain in joint, lower leg- Primary documented in this encounter
--- NOTE | 2025-07-21 11:59 | W.ED.NECK ---
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 She states her pain is currently 2 out of 10 she denies any loss consciousness denies any other injuries Related Data Home Medications ?Medication ?Instructions ?Recorded ?Confirmed albuterol sulfate 90 mcg/actuation 1 inh inhalation QID PRN Shortness 02/03/21 06/07/25 aerosol inhaler Of Breath Previous Rx's ?Medication ?Instructions ?Recorded acetaminophen 325 mg tablet 650 mg (2 x 325 mg) PO Q6H PRN 07/19/20 Mild/Mod Pain Or Temp >/= 101 #0 tabs diabetic shoes with 3 inserts #1 ea 12/03/23 Diabetic shoes with 1 pair of #1 ea 08/06/24 custom insoles tramadol 50 mg tablet 50 mg PO BID PRN pain #60 tabs 11/23/24 alprazolam 0.25 mg tablet (Xanax) 0.25 mg PO BID PRN anxiety #60 tabs 12/21/24 fluoxetine 10 mg capsule 10 mg PO DAILY #30 caps 12/21/24 pioglitazone 30 mg tablet (Actos) 30 mg PO DAILY #30 tabs 01/04/25 spironolactone 50 mg tablet 50 mg PO DAILY #30 tabs 01/04/25 meclizine 25 mg tablet 25 mg PO TID PRN dizziness #90 tabs 02/15/25 glimepiride 2 mg tablet 2 mg PO BID #60 tabs 06/07/25 Allergies Allergy/AdvReac Type Severity Reaction Status Date / Time gabapentin Allergy Severe swelling Verified 07/21/25 11:50 Iodinated Contrast Media Allergy Unknown Unknown Verified 07/21/25 11:50 apple Allergy ALGY-Swell Verified 07/21/25 11:50 Lip/Tongue/Throat banana Allergy ALGY-Swell Verified 07/21/25 11:50 Lip/Tongue/Throat pineapple Allergy ALGY-Swell Verified 07/21/25 11:50 Lip/Tongue/Throat pregabalin (From Lyrica) Allergy face Verified 07/21/25 11:50 swelling strawberry Allergy ALGY-Swell Verified 07/21/25 11:50 Lip/Tongue/Throat tramadol Allergy face Verified 07/21/25 11:50 swelling Review of Systems Musc: Reports: neck pain PFSH ED PFSH: Medical History Depression Asthma Osteoarthritis DOTTIE (obstructive sleep apnea) Hypertension Diabetes mellitus Surgical History S/P oophorectomy S/P knee surgery S/P cataract extraction S/P hysterectomy Family History Father , from [place] age 45 No problems noted. Mother No problems noted. Other Diabetes Denies family history of Colon cancer Ovarian cancer Prostate cancer Heart disease Breast cancer Hypertension Uterine cancer Thyroid disease Stroke Social History Smoking and tobacco/nicotine status: never used tobacco/nicotine Alcohol intake: never Physical Exam Const: COMMON NORMALS: no acute distress, patient oriented x3 and healthy appearing HENMT: COMMON NORMALS: normocephalic and atraumatic HEAD & SCALP: normocephalic and atraumatic Eye: COMMON NORMALS: Equal, round and reactive pupils present and EOMs intact bilaterally PUPIL: Yes Equal, round and reactive pupils present Neck/C-Spine: OTHER: Paraspinal tenderness along neck she has full range of motion Chest: COMMONS NORMALS: normal inspection of the chest and normal palpation of entire chest wall Resp: COMMON NORMALS: normal respiratory effort Cardio: COMMON NORMALS: regular rate RATE: regular rate Extremity: COMMON NORMALS: normal to inspection and full ROM Neuro: COMMON NORMALS: patient oriented x3, moves all extremities and no focal motor deficits Psych: COMMON NORMALS: mental status grossly normal, Normal thought process present and cooperative THOUGHT PROCESS: Normal thought process present Skin: COMMON NORMALS: no rashes or lesions noted and no wounds GENERAL SKIN EXAM: no rashes or lesions noted Course Vital Signs: Vital signs: Vital Signs Temperature 97.4 F L 07/21/25 11:48 Pulse Rate 73 07/21/25 11:48 Respiratory Rate 16 07/21/25 11:48 Blood Pressure 155/82 07/21/25 11:48 Pulse Oximetry 98 07/21/25 11:48 Oxygen Delivery Me thod Room Air 07/21/25 11:48 MDM - Neck Pain/Injury Medical Decision Making Patient presents here with some dizziness along neck pain after an injury. Did offer her imaging of her head and neck patient states she feels much improved and she refused imaging here exam here is benign no signs of any serious injury no signs of cervical fracture or intracranial hemorrhage or skull fracture she is stable for discharge follow-up PCP return if worsening. No radiology studies performed this visit Discharge Plan Discharge Patient Disposition: Home Clinical Impression: Strain of neck muscle, Closed head injury Condition: Stable Prescriptions: No Action albuterol sulfate 90 mcg/actuation HFA aerosol inhaler 1 inh inhalation QID PRN (Reason: Shortness Of Breath) (DME) diabetic shoes with 3 inserts See Rx Instructions .Route .MEDSUPPLY Qty: 1 0RF Rx Instructions: As directed to the shoe guys ([facility]) Diabetic shoes with 1 pair of custom insoles See Rx Instructions .Route .MEDSUPPLY Qty: 1 0RF Rx Instructions: As directed by [facility] fluoxetine 10 mg capsule 10 mg PO DAILY Qty: 30 11RF alprazolam [Xanax] 0.25 mg tablet 0.25 mg PO BID PRN (Reason: anxiety) Qty: 60 5RF meclizine 25 mg tablet 25 mg PO TID PRN (Reason: dizziness) Qty: 90 3RF tramadol 50 mg tablet 50 mg PO BID PRN (Reason: pain) Qty: 60 2RF glimepiride 2 mg tablet 2 mg PO BID Qty: 60 11RF pioglitazone [Actos] 30 mg tablet 30 mg PO DAILY Qty: 30 11RF spironolactone 50 mg tablet 50 mg PO DAILY Qty: 30 11RF Rx Instructions: take ONE tablet BY MOUTH EVERY DAY acetaminophen 325 mg Tablet 650 mg PO Q6H PRN (Reason: Mild/Mod Pain Or Temp >/= 101) Qty: 0 0RF Discharge Orders: Discharge ED (Routine); Ordered 07/21/25 Ordered By: Hope Priest Referrals: Thony Chung MD [Primary Care Provider, Family Practice] Discharge Diet: Advance as tolerated Discharge Activity: Resume usual activity Patient Instructions: Head Injury (ED) Print Language: Slovak Coding Level of Care Code ED Hand Heel Seat Fitter for Mony Marr
== END 2025-07-21 12:02 | disposition home or self-care (01) ==
PROVIDERS: Emergency Provider Emergency Medicine; PCP Family Medicine
DX: S16.1XXA Strain of muscle, fascia and tendon at neck level, initial encounter (principal); S09.8XXA Other specified injuries of head, initial encounter; E11.9 Type 2 diabetes mellitus without complications; I10 Essential (primary) hypertension; W19.XXXA Unspecified fall, initial encounter
CPT/HCPCS: 99282